=== PATIENT | female | born 2000 ===

== ENCOUNTER 2019-07-26 22:53 | Emergency (ER) | payer OTHER ==
--- OUTSIDE RECORDS SUMMARY | 2019-07-26 22:56 | XMS REPORT | Summary of Care ---
:1999 Author Organization [facility] Address [address] [place] [address] Care Team Providers Name Role Phone EdinCate Mary Beth KLEIN Primary Care Provider Reason for Visit Reason Comments decreased movement Encounter Details Date Type Department Care Team Description 06/22/2019 Nurse Triage ACCESS [facility] Cecy Vaughn, (decreased [address] movement) [place] [id number] Allergies No Known Allergiesdocumented as of this encounter (statuses as of 06/22/2019) Medications Medication Sig Dispensed Refills Start Date End Date Status azithromycin 500 mg TAKE 2 TABLETS BY 0 05/22/2019 Active tablet MOUTH NOW FOR 1 DOSE documented as of this encounter (statuses as of 06/22/2019) Active Problems Problem Noted Date Abnormal maternal glucose tolerance, antepartum 05/22/2019 Chlamydia infection affecting in third trimester 05/22/2019 BMI 31.0-31.9,adult 05/19/2019 Obesity affecting 05/19/2019 Late care affecting in third trimester 05/19/2019 Screening-pulmonary TB 05/19/2019 High-risk in third trimester 05/19/2019 Genital condyloma, female 05/19/2019 Estimated Date of Delivery Comments Yes 07/09/2019 Based on last menstrual period of 10/02/2018 (Exact Date) documented as of this encounter (statuses as of 06/22/2019) Immunizations Name Administration Dates Next Due PPD (TB) 05/19/2019 TDAP (ADACEL) VACCINE 05/19/2019 documented as of this encounter Social History Tobacco Use Types Packs/Day Years Used Date Never Smoker Smokeless Tobacco: Never Used Alcohol Use Drinks/Week oz/Week Comments Never Alcohol Habits Answer Date Recorded How often do you have a drink containing alcohol? Never 05/19/2019 How many drinks containing alcohol do you have on a typical Not asked day when you are drinking? How often do you have six or more drinks on one occasion? Not asked Estimated Date of Delivery Comments Yes 07/09/2019 Based on last menstrual period of 10/02/2018 (Exact Date) Sex Assigned at Date Recorded Not on file Job Start Date Occupation Industry Not on file Not on file Not on file Travel History Travel Start Travel End No recent travel history available. documented as of this encounter Last Filed Vital Signs Not on filedocumented in this encounter Plan of Treatment Date Type Specialty Care Team Description 06/24/2019 Verifying Machine Operator Visit Maternal Salena, Tierney Diaz MD [id number] [place], [place] [id number] Medicine , [facility] Room 06/26/2019 Routine Visit OB Satellites Cate Jesus, AGENT LICENSING CLERK [address] [place] [address] [phone] Health Maintenance Due Date Last Done Comments MENINGOCOCCAL B VACCINES (1 of 2009 2 - Risk Bexsero 2-dose series) HPV VACCINES (1 - Female 2014 3-dose series) INFLUENZA VACCINE 07/23/2019 CHLAMYDIA SCREENING 06/19/2020 06/19/2019, 05/19/2019 DTaP,Tdap,and Td Vaccines (2 - 05/19/2029 05/19/2019 Td) MENINGOCOCCAL VACCINE Aged Out No longer eligible based on patient's age to complete this topic PNEUMOCOCCAL 0-64 YEARS Aged Out No longer eligible based COMBINED SERIES on patient's age to complete this topic documented as of this encounter Results Not on filedocumented in this encounter Insurance Payer Benefit Plan / Subscriber ID Effective Phone Address Type Group Dates [facility] [place]-Shaheen PUma SIM Medicaid HEALTH CHOICE - HEALTH CHOICE nt [id number] MANAGED MEDICAID [place], [place] MEDICAID [phone] documented as of this encounter
--- OUTSIDE RECORDS SUMMARY | 2019-07-26 22:56 | XMS REPORT | Summary of Care ---
:1999 Author Organization [facility] Address [address] [place] [address] Care Team Providers Name Role Phone EdinCate Mary Beth KLEIN Primary Care Provider Reason for Visit Reason Comments decreased movement Encounter Details Date Type Department Care Team Description 06/22/2019 Nurse Triage [facility] Cecy Vaughn, (decreased [address] movement) [place] [phone] Allergies No Known Allergiesdocumented as of this [...] Date Type Specialty Care Team Description 06/24/2019 Land Agent Visit Maternal Salena, Tierney Diaz MD [id number] [place], [place] [address] Medicine , [facility] Room 06/26/2019 Routine Visit OB Satellites Cate Jesus, LEAD ENTERPRISE ARCHITECT [address] [place] [address] [phone] Health Maintenance Due Date Last Done Comments [...] ID Effective Phone Address Type Group Dates [facility] xxxxxxxxx 2019-Shaheen PUma SIM Medicaid HEALTH CHOICE - HEALTH CHOICE nt [id number] MANAGED MEDICAID [place], [place] MEDICAID [phone] documented as of this encounter
--- OUTSIDE RECORDS SUMMARY | 2019-07-26 22:56 | XMS REPORT | Summary of Care ---
:1999 Author Organization [facility] Address [address] [place] [address] Care Team Providers Name Role Phone Cate Jesus Primary Care Provider Reason for Visit Reason Comments Care Encounter Details Date Type Department Care Team Description 06/19/2019 [facility] Jesus High-risk in third trimester (Primary Dx); Visit ERNEI Lee Chlamydia infection affecting in third trimester; [address] Obesity affecting in third trimester; [place], [place] A Abnormal maternal glucose tolerance, antepartum; [address] [place], [place] Genital condyloma, female; [phone] [address] Diarrhea of presumed infectious origin [phone] Allergies No Known Allergiesdocumented as of this encounter (statuses as of 06/19/2019) Medications Medication Sig Dispensed Refills Start Date End Date Status azithromycin 500 mg TAKE 2 TABLETS BY 0 05/22/2019 Active tablet MOUTH NOW FOR 1 DOSE documented as of this encounter (statuses as of 06/19/2019) Active Problems Problem Noted Date Abnormal maternal [...] as of this encounter (statuses as of 06/19/2019) Immunizations Name Administration Dates Next Due PPD [...] of this encounter Last Filed Vital Signs Vital Sign Reading Time Taken Comments Blood Pressure 128/80 06/19/2019 1:33 PM CDT Pulse 88 06/19/2019 1:32 PM CDT Temperature 36.5 C (97.7 F) 06/19/2019 1:32 PM CDT Respiratory Rate 16 06/19/2019 1:32 PM CDT Oxygen Saturation - - Inhaled Oxygen Concentration - - Weight 92.2 kg (203 lb 3 oz) 06/19/2019 1:32 PM CDT Height 164 cm (5' 4.57") 06/19/2019 1:32 PM CDT Body Mass Index 34.26 06/19/2019 1:32 PM CDT documented in this encounter Progress Notes Cate Jesus, NATIONAL VAN TRUCK DRIVER - 06/19/2019 1:00 PM CDT Chief complaint: Chief Complaint Patient presents with Care HPI Mya Blanchard is a 18 year old female is a @ 37w1d here for visit. Patient's last menstrual period was 10/02/2018 (exact date). Estimated Date of Delivery: 07/09/19 Pt reports diarrhea x 4 days. She thinks it was caused by something she ate. Denies any other symptoms including N/V. Having ~4 episodes of diarrhea daily. Has not tried any self treatment. She is taking PNV. She reports good FM. She denies any ctx/cramping, VB, LOF, HEATON , visual disturbance, vaginal discharge or dysuria. She denies any foreign travel. She also denies any physical, sexual or emotional abuse. Histories OB History Para Term AB Living 1 SAB TAB Ectopic Multiple Live Births # Outcome Date GA Lbr Patricio/2nd Weight Sex Delivery Anes PTL Lv 1 Current Past Medical History: Diagnosis Date Abnormal maternal glucose tolerance, antepartum 05/22/2019 Chlamydia infection affecting in third trimester 05/22/2019 Genital condyloma, female 05/19/2019 Family History Problem Relation Age of Onset No Significant Medical Problems Mother No Significant Medical Problems Father No Significant Medical Problems Sister No Significant Medical Problems Brother No Significant Medical Problems Maternal Aunt No Significant Medical Problems Maternal Uncle No Significant Medical Problems Paternal Aunt No Significant Medical Problems Paternal Uncle No Significant Medical Problems Maternal Grandmother No Significant Medical Problems Maternal Grandfather No Significant Medical Problems Paternal Grandmother No Significant Medical Problems Paternal Grandfather Family Status Relation Name Status Mo Alive Fa Alive Sis Alive Bro Alive MAunt Alive MUnc Alive PAunt Alive PUnc Alive MGMo Alive MGFa Alive PGMo Alive PGFa No past surgical history on file. Social History Socioeconomic History Marital status: Spouse name: Not on file Number of children: Not on file Years of education: Not on file Highest education level: Not on file Occupational History Not on file Social Needs Financial resource strain: Not on file Food insecurity: Worry: Not on file Inability: Not on file Transportation needs: Medical: Not on file Non-medical: Not on file Tobacco Use Smoking status: Never Smoker Smokeless tobacco: Never Used Substance and Sexual Activity Alcohol use: Never Frequency: Never Drug use: Never Sexual activity: Not Currently Partners: Male control/protection: None Comment: last sexual intercourse 02/16/2019 Lifestyle Physical activity: Days per week: Not on file Minutes per session: Not on file Stress: Not on file Relationships Social connections: Talks on phone: Not on file Gets together: Not on file Attends confucianist service: Not on file Active member of club or organization: Not on file Attends meetings of clubs or organizations: Not on file Relationship status: Not on file Intimate partner violence: Fear of current or ex partner: Not on file Emotionally abused: Not on file Physically abused: Not on file Forced sexual activity: Not on file Other Topics Concern Not on file Social History Narrative Mormon preference is Oriental Orthodox. Patient lives with cousin. Patient has dogs. Social History Substance and Sexual Activity Sexual Activity Not Currently Partners: Male control/protection: None Comment: last sexual intercourse 02/16/2019 Labs I have reviewed the patient's labs. and Labs are pending. Radiology Radiology pending. Allergies Mya has No Known Allergies. Medications Mya has a current medication list which includes the following prescription( s): azithromycin. Review of Systems Constitutional: Negative for appetite change, fatigue and fever. Eyes: Negative for visual disturbance. Respiratory: Negative. Cardiovascular: Negative for palpitations and leg swelling. Gastrointestinal: Negative for abdominal pain, constipation, diarrhea, nausea and vomiting. Genitourinary: Negative. Negative for dysuria, vaginal bleeding, vaginal discharge and pelvic pain. Musculoskeletal: Negative. Skin: Negative for rash. Neurological: Negative for dizziness, light-headedness and headaches. Psychiatric/Behavioral: Negative. BP 128/80 (BP Location: Left arm, Patient Position: Sitting, BP CUFF SIZE: Adult Large) | Pulse 88| Temp 36.5 C (97.7 F) (Oral) | Resp 16 | Ht 5' 4.57" (1.64 m) | Wt 203 lb 3 oz (92.2 kg) | LMP 10/02/2018 (Exact Date) | BMI 34.26 kg/m Pregravid BMI: 27.2 Physical Exam Vitals reviewed. Constitutional: She is oriented to person, place, and time. She appears well- developed and well-nourished. See flowsheet Cardiovascular: No peripheral edema present. Pulmonary/Chest: Normal inspiratory effort. Abdominal: Abdomen is soft. Neuro/Psychiatric: She has a normal mood and affect. She is oriented to person, place, and time. Skin: Skin normal. External genitalia: Multiple condylomas, nonobstructive Assessment/Plan 1. High-risk in third trimester 37w1d 36 week labs today IOL scheduled for 07/10/19 at 40w1d d/t unreliable dating. Pt does not have transportation for an IOLon 07/09 Labor precautions, FKC and PIH warnings reviewed. ' - POCT URINALYSIS W/O SPECIFIC GRAVITY - CBC WITH DIFF - GC & CHLAMYDIA AMPLIFIED ASSAY - GROUP B STREPTOCOCCUS BY PCR - CBC WITH DIFFERENTIAL 2. Chlamydia infection affecting in third trimester S/p zithromax, SHAN ordered today - GC & CHLAMYDIA AMPLIFIED ASSAY 3. Obesity affecting in third trimester The patient is asked to make an attempt to improve diet and exercise patterns to aid in medical management of this problem. 4. Abnormal maternal glucose tolerance, antepartum Failed 1 hr, passed 3 hr 5. Genital condyloma, female S/p HR consult, per note internal condylomas nonobstructive and patient is candidate for vaginal delivery 6. Diarrhea of presumed infectious origin Likely from food source, encouraged increase water intake, BRAT diet and imodium if symptoms become severe. Return to clinic in 1 weeks. Discussed treatment options. Reviewed patient instructions and provided printed copy. at 37w1d This visit did not involve counseling and coordination that comprised more than 50% of the visit time. Shilpi ortiz RN - 06/19/2019 1:00 PM CDTPatient GV has been scheduled for IOL on @ 40.1wks , 7:30pm, transportation issues noted. documented in this encounter Plan of Treatment Date Type Specialty Care Team Description 06/24/2019 Machine Edge Bander Visit Maternal 5, [facility] Usg Room Medicine 06/26/2019 Routine Visit OB Satellites Cate Jesus FNP [address] [place], [place] [address] Name Type Priority Associated Diagnoses Date/Time CBC WITH DIFF LAB Routine High-risk in 06/19/2019 2:00 PM third trimester CDT GC & CHLAMYDIA AMPLIFIED LAB Routine High-risk in 06/19/2019 2: 00 PM ASSAY third trimester CDT Chlamydia infection affecting in third trimester GROUP B STREPTOCOCCUS BY LAB Routine High-risk in 06/19/2019 2: 00 PM PCR third trimester CDT CBC WITH DIFFERENTIAL LAB Routine High-risk in 06/19/2019 2:00 PM third trimester CDT Health Maintenance Due Date Last Done Comments MENINGOCOCCAL B VACCINES (1 of 2 - 2009 Risk Bexsero 2-dose series) HPV VACCINES (1 - Female 3-dose 2014 series) INFLUENZA VACCINE 07/23/2019 CHLAMYDIA SCREENING 05/19/2020 05/19/2019 DTaP,Tdap,and Td Vaccines (2 - Td) 05/19/2029 05/19/2019 MENINGOCOCCAL VACCINE Aged Out No longer eligible based on patient's age to complete this topic PNEUMOCOCCAL 0-64 YEARS COMBINED Aged Out No longer eligible based on SERIES patient's age to complete this topic documented as of this encounter Procedures Procedure Name Priority Date/Time Associated Comments Diagnosis POCT URINALYSIS W/O Routine 06/19/2019 1:34 PM High-risk Results for this SPECIFIC GRAVITY CDT in third trimester procedure are in the results section. documented in this encounter Results POCT URINALYSIS W/O SPECIFIC GRAVITY (06/19/2019 1:34 PM CDT) POCT PH U . 5 - 8 mg/dl POCT U LEUK EST . Negative - Negative POCT U NIT . Negative - Negative POCT U PROT neg Negative - Negative POCT U GLU neg Negative - Negative POCT U KETONE . Negative - Negative POCT U BLD . Negative - Negative Specimen Urine - URINE, CLEAN CATCH documented in this encounter Visit Diagnoses Diagnosis High-risk in third trimester - Primary Chlamydia infection affecting in third trimester Obesity affecting in third trimester Abnormal maternal glucose tolerance, antepartum Genital condyloma, female Condyloma acuminatum Diarrhea of presumed infectious origin documented in this encounter Insurance Payer Benefit Plan / Subscriber ID Effective Phone Address Type Group Dates [facility] xxxxxxxxx 2019-Shaheen SIM Medicaid HEALTH [employer] - HEALTH LookStat nt [id number] MANAGED MEDICAID [place], [place]ICAID [phone] documented as of this encounter
--- OUTSIDE RECORDS SUMMARY | 2019-07-26 22:57 | XMS REPORT | Summary of Care ---
:1999 Author Organization [facility] Address [address] [place] [address] Care Team Providers Name Role Phone Cate Jesus Primary Care Provider Reason for Visit Reason Comments ULTRASOUND (Routine) Status Reason Specialty Diagnoses / Referred By Referred To Procedures Contact Contact Authorized Maternal Diagnoses High risk , antepartum Genital condyloma, female Rolle, Jolie Medicine Procedures CONSULT MATERNAL MEDICINE ULTRASOUND Preferred Location: Leeann Marmolejo [address] [place] [address] Encounter Details Date Type Department Care Team Description 06/24/2019 Hot Press Operator Visit [facility] Women's [place], Tierney Diaz MD [address] [place] [address] [id number] [place] [address] Encounter for Healthcare-[address] Usg Room screening [facility] Clinics for malformation using [address] [place] [address] Allergies No Known Allergiesdocumented as of this encounter (statuses as of 06/24/2019) Medications Medication Sig Dispensed Refills Start Date End Date Status azithromycin 500 mg TAKE 2 TABLETS BY 0 05/22/2019 Active tablet MOUTH NOW FOR 1 DOSE documented as of this encounter (statuses as of 06/24/2019) Active Problems Problem Noted Date Decreased movements in third trimester, single or unspecified fetus 11/2018 Abnormal maternal glucose tolerance, antepartum 05/22/2019 Chlamydia infection affecting in third trimester 05/22/2019 BMI 31.0-31.9,adult 05/19/2019 Obesity affecting 05/19/2019 Late care affecting in third trimester 05/19/2019 Screening-pulmonary TB 05/19/2019 High-risk in third trimester 05/19/2019 Genital condyloma, female 05/19/2019 Estimated Date of Delivery Comments Yes 07/09/2019 Based on last menstrual period of 10/02/2018 (Exact Date) documented as of this encounter (statuses as of 06/24/2019) Immunizations Name Administration Dates Next Due PPD [...] Treatment Date Type Specialty Care Team Description 06/26/2019 Routine Visit OB Satellites Cate Jesus, SHEET ROCK APPLICATOR [address] [place] [address] [phone] Health Maintenance Due Date Last Done Comments [...] Results Not on filedocumented in this encounter Visit Diagnoses Diagnosis Encounter for screening for malformation using ultrasound documented in this encounter Insurance Payer Benefit Plan / Subscriber ID Effective Phone Address Type Group Dates [facility] xxxxxxxxx 2019-Shaheen SIM Medicaid [employer] [id number] MANAGED MEDICAID [place], [place] [id number] documented as of this encounter
--- OUTSIDE RECORDS SUMMARY | 2019-07-26 22:57 | XMS REPORT ---
:1999 Author [facility] Address [address] [place] [address] Dr. Guillaume [address] [place] [address] Care Team Providers Name Role Phone Unavailable Unavailable Unavailable Problems This patient has no known problems. Allergies, Adverse Reactions, Alerts This patient has no known allergies or adverse reactions. Medications This patient has no known medications.
--- OUTSIDE RECORDS SUMMARY | 2019-07-26 22:57 | XMS REPORT | Summary of Care ---
:2000 Author Organization [facility] Address [address] [place] [address] Care Team Providers Name Role Phone Cate Jesus Primary Care Provider Reason for Visit Reason Comments Care Encounter Details Date Type Department Care Team Description [facility] High-risk in third trimester (Primary Dx); Visit ERNIE Lee Chlamydia infection affecting in third trimester; [address] Obesity affecting in third trimester; [place], [place] Ethan A Late care affecting in third trimester; [address] [place], [place] Genital condyloma, female; [phone] [address] Abnormal maternal glucose tolerance, antepartum; [phone] Elevated blood pressure reading without diagnosis of hypertension Allergies No Known Allergiesdocumented as of this encounter (statuses as of 06/26/2019) Medications Medication Sig Dispensed Refills Start Date End Date Status azithromycin 500 mg TAKE 2 TABLETS 0 05/22/2019 06/26/2019 Discontinued tablet BY MOUTH NOW FOR 1 DOSE documented as of this encounter (statuses as of 06/26/2019) Active Problems Problem Noted Date Decreased movements [...] as of this encounter (statuses as of 06/26/2019) Immunizations Name Administration Dates Next Due PPD [...] Sign Reading Time Taken Comments Blood Pressure 127/73 06/26/2019 1:43 PM CDT Pulse 62 06/26/2019 1:42 PM CDT Temperature 37.1 C (98.7 F) 06/26/2019 1:42 PM CDT Respiratory Rate 16 06/26/2019 1:42 PM CDT Oxygen Saturation - - Inhaled Oxygen Concentration - - Weight 92.6 kg (204 lb 1 oz) 06/26/2019 1:42 PM CDT Height 162.6 cm (5' 4") 06/26/2019 1:42 PM CDT Body Mass Index 35.03 06/26/2019 1:42 PM CDT documented in this encounter Progress Notes Cate Jesus, CLINICAL OPERATIONS CONSULTANT - 06/26/2019 1:15 PM CDT Chief complaint: Chief Complaint Patient presents with Care HPI Mya Blanchard is a 18 year old female is a @ 38w1d here for visit. Patient's last menstrual period was 10/02/2018 (exact date). Estimated Date of Delivery: 07/09/19 Today she denies any complaints or concerns. She reports occasional headaches relieved by Tylenol and reports occasional contractions. She is taking PNV. She reports good FM. She denies any, VB, LOF, HEATON, visual disturbance, vaginal discharge or dysuria. She [...] file Gets together: Not on file Attends quaker service: Not on file Active member of [...] Concern Not on file Social History Narrative Jainism preference is Bahai. Patient lives with cousin. Patient has dogs. Social History Substance and Sexual Activity Sexual Activity Not Currently Partners: Male control/protection: None Comment: last sexual intercourse 02/16/2019 Labs No new labs, I have reviewed the patient's labs. and Routine Visit on 06/22/2019 Component Date Value POCT PH U 06/22/2019 * POCT U LEUK EST 06/22/2019 * POCT U NIT 06/22/2019 * POCT U PROT 06/22/2019 Negative POCT U GLU 06/22/2019 Negative POCT U KETONE 06/22/2019 * POCT U BLD 06/22/2019 * Routine Visit on 06/19/2019 Component Date Value POCT PH U 06/19/2019 . POCT U LEUK EST 06/19/2019 . POCT U NIT 06/19/2019 . POCT U PROT 06/19/2019 neg POCT U GLU 06/19/2019 neg POCT U KETONE 06/19/2019 . POCT U BLD 06/19/2019 . C. trachomatis Nucleic A* 06/19/2019 Negative N. gonorrhoeae Nucleic A* 06/19/2019 Negative Group B Streptococcus by* 06/19/2019 Negative WBC 06/19/2019 11.29* RBC 06/19/2019 4.36 HGB 06/19/2019 10.4* HCT 06/19/2019 34.7* MCV 06/19/2019 79.6* MCH 06/19/2019 23.9* MCHC 06/19/2019 30.0* RDW-SD 06/19/2019 43.5 RDW-CV 06/19/2019 15.1 PLT 06/19/2019 272 MPV 06/19/2019 11.7 NRBC/100 WBC 06/19/2019 0.0 NRBC x10^3 06/19/2019 <0.01 GRAN MAT (NEUT) % 06/19/2019 75.9 IMM GRAN % 06/19/2019 0.60 LYMPH % 06/19/2019 14.3 MONO % 06/19/2019 7.5 EOS % 06/19/2019 1.3 BASO % 06/19/2019 0.4 GRAN MAT x10^3(ANC) 06/19/2019 8.57* IMM GRAN x10^3 06/19/2019 0.07* LYMPH x10^3 06/19/2019 1.61 MONO x10^3 06/19/2019 0.85 EOS x10^3 06/19/2019 0.15 BASO x10^3 06/19/2019 0.04 Routine Visit on 06/01/2019 Component Date Value POCT PH U 06/01/2019 5 POCT U LEUK EST 06/01/2019 neg POCT U NIT 06/01/2019 neg POCT U PROT 06/01/2019 neg POCT U GLU 06/01/2019 neg POCT U KETONE 06/01/2019 neg POCT U BLD 06/01/2019 neg Radiology I have reviewed the patient's radiology. anatomy scan 06/24/19 reviewed Allergies Mya has No Known Allergies. Medications Mya currently has no medications in their medication list. Review of Systems Constitutional: Negative for appetite change, fatigue and fever. Eyes: Negative for visual disturbance. Respiratory: Negative. Cardiovascular: Negative for palpitations and leg swelling. Gastrointestinal: Negative for abdominal pain, constipation, diarrhea, nausea and vomiting. Genitourinary: Negative. Negative for dysuria, vaginal bleeding, vaginal discharge and pelvic pain. Musculoskeletal: Negative. Skin: Negative for rash. Neurological: Negative for dizziness, light-headedness and headaches. Psychiatric/Behavioral: Negative. BP 127/73 (BP Location: Left arm, Patient Position: Sitting, BP CUFF SIZE: Adult Large) | Pulse 62| Temp 37.1 C (98.7 F) (Oral) | Resp 16 | Ht 5' 4 " (1.626 m) | Wt 204 lb 1 oz (92.6 kg) | LMP 10/02/2018 (Exact Date) | BMI 35.03 kg/m Pregravid BMI: 27.6 Physical Exam Vitals reviewed. Constitutional: She is oriented to person, place, and time. She appears well- developed and well-nourished. See flowsheet Cardiovascular: No peripheral edema present. Pulmonary/Chest: Normal inspiratory effort. Abdominal: Abdomen is soft. Neuro/Psychiatric: She has a normal mood and affect. She is oriented to person, place, and time. Skin: Skin normal. Assessment/Plan 1. High-risk in third trimester 38w1d Labor precautions, FKC and PIH warnings reviewed. 40w IOL scheduled for 07/10/19 - POCT URINALYSIS W/O SPECIFIC GRAVITY 2. Chlamydia infection affecting in third trimester S/p azithromycin, SHAN negative 06/19/19 3. Obesity affecting in third trimester The patient is asked to make an attempt to improve diet and exercise patterns to aid in medical management of this problem. 4. Late care affecting in third trimester 5. Genital condyloma, female Nonobstructive, address treatment options 6. Abnormal maternal glucose tolerance, antepartum Failed 1 hr GTT, passed 3 hr. 7. Elevated blood pressure reading without diagnosis of hypertension BP today 140/86 with recheck 127/73 Reports occasional headaches Has baseline blurry vision outside of , denies changes in vision Denies RUQ 1+ pedal edema Trace proteinuria Instructed to keep BP log at home BID, report to ER if >160/100 Strong ER warnings for s/s PIH - CUFF ADULT BLOOD PRESSURE DISP Return to clinic in 1 weeks. Discussed treatment options. Reviewed patient instructions and provided printed copy. at 38w1d This visit did not involve counseling and coordination that comprised more than 50% of the visit time. documented in this encounter Plan of Treatment Date Type Specialty Care Team Description 07/04/2019 Routine Visit OB Satellites Cate Jesus FNP [address] [place] [address] [phone] Health Maintenance Due Date Last Done Comments [...] Associated Comments Diagnosis POCT URINALYSIS W/O Routine 06/26/2019 1:44 PM High-risk Results for this SPECIFIC GRAVITY CDT in third trimester procedure are in the results section. documented in this encounter Results POCT URINALYSIS W/O SPECIFIC GRAVITY (06/26/2019 1:44 PM CDT) POCT PH U . 5 [...] third trimester Obesity affecting in third trimester Late care affecting in third trimester Genital condyloma, female Condyloma acuminatum Abnormal maternal glucose tolerance, antepartum Elevated blood pressure reading without diagnosis of hypertension documented in this encounter Insurance Payer Benefit Plan / Subscriber ID Effective Phone Address Type Group [facility] xxxxxxxxx 2019-Shaheen SIM Medicaid HEALTH Figment - HEALTH Figment nt [id number] MANAGED MEDICAID [place], [place] MEDICAID [phone] documented as of this encounter
--- OUTSIDE RECORDS SUMMARY | 2019-07-26 22:57 | XMS REPORT | Summary of Care ---
:1999 Author Organization [facility] Address [address] [place] [address] Care Team Providers Name Role Phone Cate Jesus Primary Care Provider Reason for Visit Reason Comments ROUTINE VISIT Encounter Details Date Type Department Care Team Description 06/22/2019 Routine [facility] R[facility]- Cate Jesus High-risk in third trimester (Primary Dx); Visit ERNIE Lee Decreased movements in third trimester, single or unspecified fetus; [address] Chlamydia infection affecting in third trimester; [place], [place] Ethan A Obesity affecting in third trimester; [address] [place], [place] Late care affecting in third trimester; [phone] [address] Abnormal maternal glucose tolerance, antepartum; [phone] Genital condyloma, female; [phone] Back pain affecting in third trimester (Fax) Allergies No Known Allergiesdocumented as of this encounter (statuses as of 06/22/2019) Medications Medication Sig Dispensed Refills Start Date End Date Status azithromycin 500 mg TAKE 2 TABLETS BY 0 05/22/2019 Active tablet MOUTH NOW FOR 1 DOSE documented as of this encounter (statuses as of 06/22/2019) Active Problems Problem Noted Date Decreased movements [...] Sign Reading Time Taken Comments Blood Pressure 110/82 06/22/2019 2:21 PM CDT Pulse 92 06/22/2019 2:21 PM CDT Temperature 36.5 C (97.7 F) 06/22/2019 2:21 PM CDT Respiratory Rate 16 06/22/2019 2:21 PM CDT Oxygen Saturation 99% 06/22/2019 2:21 PM CDT Inhaled Oxygen Concentration - - Weight 93.2 kg (205 lb 8 oz) 06/22/2019 2:21 PM CDT Height 162.6 cm (5' 4") 06/22/2019 2:21 PM CDT Body Mass Index 35.27 06/22/2019 2:21 PM CDT documented in this encounter Patient Instructions Patient InstructionsTiffanyllCate coyne FNP - 06/22/2019 2:15 PM CDT documented in this encounter Progress Notes Cate Jesus FNP - 06/22/2019 2:15 PM CDT Chief complaint: Chief Complaint Patient presents with ROUTINE VISIT HPI Mya Blanchard is a 18 year old female is a @ 37w4d here for problem visit. Patient's last menstrual period was 09/2018 (exact date). Estimated Date of Delivery: 07/09/19 Pt reports decreased movement since last night. She called and spoke with nurse and tried drinking fluids, rest and eating, and did not see an improvement in kick counts. She is also experiencingsome back pain. She is taking PNV. She denies any ctx/cramping, VB, LOF, HEATON, visual disturbance , vaginal discharge or dysuria. She denies any [...] file Gets together: Not on file Attends orthodox service: Not on file Active member of [...] Concern Not on file Social History Narrative Zoroastrianism preference is Worship. Patient lives with cousin. Patient has dogs. Social History Substance and Sexual Activity Sexual Activity Not Currently Partners: Male control/protection: None Comment: last sexual intercourse 02/16/2019 Labs No new labs and I have reviewed the patient's labs. Radiology Radiology pending. Allergies Mya has No [...] bleeding, vaginal discharge and pelvic pain. Musculoskeletal: Positive for back pain. Skin: Negative for rash. Neurological: Negative for dizziness, light-headedness and headaches. Psychiatric/Behavioral: Negative. BP 110/82 (BP Location: Right arm, Patient Position: Sitting, BP CUFF SIZE: Adult Medium) | Pulse 92 | Temp 36.5 C (97.7 F) | Resp 16 | Ht 5' 4" ( 1.626 m) | Wt 205 lb 8 oz (93.2 kg) | LMP 10/02/2018 (Exact Date) | SpO2 99% | BMI 35.27 kg/m Pregravid BMI: 27.6 Physical Exam Vitals reviewed. Constitutional: She is oriented to person, place, and time. She appears well- developed and well-nourished. See flowsheet Cardiovascular: No peripheral edema present. Pulmonary/Chest: Normal inspiratory effort. Abdominal: Abdomen is soft. Neuro/Psychiatric: She has a normal mood and affect. She is oriented to person, place, and time. Skin: Skin normal. Assessment/Plan 1. High-risk in third trimester 37w4d Labor precautions, FKC and PIH warnings reviewed. IOL scheduled for 07/10/19, instructions given Anatomy scan scheduled for 06/24/19 - POCT URINALYSIS W/O SPECIFIC GRAVITY - NON-STRESS TEST 2. Decreased movements in third trimester, single or unspecified fetus NST reactive Reviewed proper kick count technique, encouraged plenty of fluids and rest - NON-STRESS TEST 3. Chlamydia infection affecting in third trimester SHAN negative 06/19/19 4. Obesity affecting in third trimester The patient is asked to make an attempt to improve diet and exercise patterns to aid in medical management of this problem. 5. Late care affecting in third trimester Late entry to care at 32 weeks 6. Abnormal maternal glucose tolerance, antepartum Failed 1 hr GTT, 3 hour GTT 3/4 values WNL 7. Genital condyloma, female 8. Back pain affecting in third trimester Advised getting plenty of rest, massage neck and back, and maternity support belt. Apply ice/heat tothe affected area and neck prn. Instructions for regular strength Tylenol 2 tablets every 4 hours asneeded, not to exceed 8 tablets in 24 hours. Return to clinic in 1 weeks. Discussed treatment options. Reviewed patient instructions and provided printed copy. at 37w4d This visit did not involve counseling and coordination that comprised more than 50% of the visit time. documented in this encounter Plan of Treatment Date Type Specialty Care Team Description 06/24/2019 Bottling Line Operator Visit Maternal Salena, Tierney Diaz MD [id number] [place] [address] Medicine 5, [facility] Usg Room 06/26/2019 Routine Visit OB Satellites Cate Jesus FNP [address] [facility] [address] [place], [place] [id number] Health Maintenance Due Date Last Done Comments [...] encounter Procedures Procedure Name Priority Date/Time Associated Diagnosis Comments NON-STRESS Routine 06/22/2019 2:41 High-risk Results for this TEST PM CDT in third trimester procedure are in Decreased the results movements in third section. trimester, single or unspecified fetus POCT URINALYSIS W/O Routine 06/22/2019 2:25 High-risk Results for this SPECIFIC GRAVITY PM CDT in third trimester procedure are in the results section. documented in this encounter Results NON-STRESS TEST (06/22/2019 2:41 PM CDT) Specimen Narrative Performed At Reactive Cat 1 NST PACS Performing Organization Address [facility] Phone Number PACS POCT URINALYSIS W/O SPECIFIC GRAVITY (06/22/2019 2:25 PM CDT) POCT PH U * 5 - 8 mg/dl [facility] POCT U LEUK EST * Negative - Negative [facility] POCT U NIT * Negative - Negative [facility] POCT U PROT Negative Negative - Negative [facility] POCT U GLU Negative Negative - Negative [facility] POCT U KETONE * Negative - Negative [facility] POCT U BLD * Negative - Negative [facility] Specimen Urine - URINE, CLEAN CATCH Performing Organization Address City/[facility] Phone Number [facility] CLIA: [id number], [address] [place] [address] Mary documented in this encounter Visit Diagnoses Diagnosis High-risk in third trimester - Primary Decreased movements in third trimester, single or unspecified fetus Chlamydia infection affecting in third trimester Obesity affecting in third trimester Late care affecting in third trimester Abnormal maternal glucose tolerance, antepartum Genital condyloma, female Condyloma acuminatum Back pain affecting in third trimester documented in this encounter Insurance Payer Benefit Plan / Subscriber ID Effective Phone Address Type Group Dates [facility] xxxxxxxxx 2019-Shaheen SIM Medicaid EDMdesigner - EDMdesigner [id number] MANAGED MEDICAID [place], [place] MEDICAID [phone] documented as of this encounter
--- OUTSIDE RECORDS SUMMARY | 2019-07-26 22:57 | XMS REPORT | Summary of Care ---
:1999 Author Organization [facility] Address [address] [place] [address] Care Team Providers Name Role Phone Cate Jesus BANQUET CHEF Primary Care Provider Reason for Visit Reason Comments Assessment Headache [place] HIGH BLOOD PRESSURE Encounter Details Date Type Department Care Team Description 06/29/2019 [facility], Assessment; Headache; [place] BANQUET CHEF [place]; HIGH BLOOD [address] PRESSURE [facility] A [address] [place], [place] [address] Allergies No Known Allergiesdocumented as of this encounter (statuses as of 06/29/2019) Medications No known medicationsdocumented as of this encounter (statuses as of 06/29/2019) Active Problems Problem Noted Date Decreased movements [...] as of this encounter (statuses as of 06/29/2019) Immunizations Name Administration Dates Next Due PPD [...] Description 07/04/2019 Routine Visit OB Satellites Cate Jesus, BANQUET CHEF [address] [place] [address] [phone] Health Maintenance Due Date Last Done Comments [...] ID Effective Phone Address Type Group Dates [facility] xxxxxxxxx 2019-Shaheen SIM Medicaid HEALTH CHOICE - HEALTH CHOICE nt [id number] MANAGED MEDICAID [place], [place] MEDICAID [id number] documented as of this encounter
--- OUTSIDE RECORDS SUMMARY | 2019-07-26 22:58 | XMS REPORT | Summary of Care ---
:[address] [facility] Address [address] [place] [id number] Care Team Providers Name Role Phone Cate Jesus Primary Care Provider Reason for Referral (Routine) Status Reason Specialty Diagnoses / Referred By Referred To Procedures Contact Contact New Request Obstetrics & Diagnoses S/P section Nicolle Washburn, Gynecology Procedures DISCHARGE FOLLOW-UP: [facility] [address] [place] [address] [id number] [place] [address] Reason for Visit Reason Comments Hypertension TINGLING Headache Auth/Cert Status Reason Specialty Diagnoses / Referred By Contact Referred To Contact Procedures Obstetrics Diagnoses Labor [address] [place] [id number] Encounter Details Date Type Department Care Team Description 06/29/2019 - Hospital Encounter Mother Baby Unit Brandon Oakes Abnormal maternal 07/05/2019 (J8C) DO Reg glucose tolerance, [address] [place] [address] antepartum [place] [id number] [place] [phone] [id number] Allergies No Known Allergiesdocumented as of this encounter (statuses as of 07/05/2019) Medications Medication Sig Dispensed Refills Start Date End Date Status vitamin w/FA Take 1 tablet by 100 tablet 3 07/04/2019 Active tabletIndications: mouth daily. S/P section docusate calcium 240 Take 1 capsule by 60 capsule 1 07/04/2019 Active mg mouth once daily capsuleIndications: as needed for S/P section Constipation. ferrous sulfate 325 Take 1 tablet by 60 tablet 2 07/04/2019 Active mg (65 mg iron) mouth 2 (two) tabletIndications: times daily. S/P section ibuprofen 600 mg Take 1 tablet by 60 tablet 1 07/04/2019 Active tabletIndications: mouth every 6 S/P section (six) hours as needed for Pain (scale 1-3) or Pain (scale 4-6) (Pain). Take with food or milk. documented as of this encounter (statuses as of 07/05/2019) Active Problems Problem Noted Date 38 weeks gestation of 06/29/2019 Obesity (BMI 30-39.9) 06/29/2019 Decreased movements in third trimester, single or [...] as of this encounter (statuses as of 07/05/2019) Immunizations Name Administration Dates Next Due PPD [...] Sign Reading Time Taken Comments Blood Pressure 120/80 07/05/2019 3:00 PM CDT Pulse 73 07/05/2019 3:00 PM CDT Temperature 36.4 C (97.5 F) 07/05/2019 3:00 PM CDT Respiratory Rate 20 07/05/2019 3:00 PM CDT Oxygen Saturation 98% 07/05/2019 3:00 PM CDT Inhaled Oxygen Concentration - - Weight 93 kg (205 lb) 06/29/2019 5:24 PM CDT Height - - Body Mass Index 35.19 06/26/2019 1:42 PM CDT documented in this encounter Discharge Instructions Alexia Adams RN - 07/05/2019Multidisciplinary Discharge Instructions (may include diet, dressing changes, activity limits, written materials given to patient: DIET: Eat a well balanced diet; drink 6-8 glasses of fluids daily; eat fruits and green, leafy vegetables. DAILY ACTIVITIES: 1. As much as you feel able to do. Rest when you are tired. 2. Limitations: Specify; No heavy lifting other than your baby for 4 weeks if you had surgery. TREATMENT AT HOME 1. Use a well-fitting bra to prevent breast engorgement 2. Resume intercourse as instructed by your physician. 3. Do not use douches or tampons for four weeks. 4. To help prevent urinary tract infection; after each urination and bowel movement, wipe and dry from front to back and change lore pad. 5. Follow discharge instructions regarding baby care. 6. Follow family planning instructions. IMMEDIATE TREATMENT - Call Clinic or Your Physician 1. Increase in pain and tenderness of uterus. 2. Increased vaginal bleeding (bright red blood which soaks 2 pads in 1 hour or pass large clots). 3. Foul smelling vaginal discharge. 4. Burning in the tube that empties the urine from the bladder. 5. Painful breast engorgement or cracked nipples. 6. Pain, discharges, or gaping incision. 7. Temperature greater than 38.0C or 100.4F 8. Pain and tenderness of calf or thigh muscles. 9. No bowel movements in 4 days. For Problems or Questions Call: OB Clinic Family Planning [phone] or Emergency: Go to the closest emergency room or call 911 AttachmentsThe following attachments cannot be sent through Care Everywhere., Breast Care After (English), After (English) Depression, Understanding (English)When to Call the Healthcare Provider, After Delivery (English)Mothers, For New: Staying Fit After Delivery ( English)documented in this encounter Progress Notes Karen Chapman MD - 07/04/2019 10:49 AM CDTR2 Note Mya Carrillo [id number] 07/04/2019, 10:49 AM Patient afebrile more than 24 hours. Will D/c antibiotics and anticipate discharge tomorrow if afebrile overnight. Karen Chapman PGY 2 OBGYNElectronically signed by Karen Chapman MD at 2018 10:51 AM CDTRKaren Reese MD - 07/04/2019 4:40 AM CDT POST-OPERATIVE PROGRESS NOTE 07/04/2019 4:40 AM Subjective: Overnight patient had no complaints. Her pain is well controlled on oral pain medications. She is tolerating a regular diet. She has passed flatus. She is ambulating without difficulty. Lochia is Scant. She is urinating without weston. Patient denies chest pain, SOB, n/v, headache, RUQ pain, vision changes, dizziness. Objective: VITALS: Patient Vitals for the past 24 hrs: BP Temp Temp src Pulse Resp SpO2 07/04/19 0000 137/80 36.8 C (98.2 F) Oral 84 20 99 % 07/03/19 2000 126/84 36.9 C (98.4 F) Oral 88 20 99 % 07/03/19 1600 139/88 36.6 C (97.9 F) Oral 84 18 99 % 07/03/19 1550 137/85 36.6 C (97.9 F) Oral 90 18 99 % 07/03/19 1155 125/75 36.7 C (98 F) Oral 89 07/03/19 1000 138/85 36.9 C (98.5 F) Oral 76 18 99 % 07/03/19 0700 (!) 140/87 37.2 C (98.9 F) Oral 75 18 98 % 07/03/19 0600 (!) 140/89 37.3 C (99.1 F) Axillary 82 18 95 % 07/03/19 0500 (!) 140/84 I/O: Intake/Output Summary (Last 24 hours) at 07/04/2019 0440 Last data filed at 07/04/2019 0030 Gross per 24 hour Intake 1491 ml Output 2250 ml Net -759 ml PE: General: patient alert and in no acute distress Lungs: clear to auscultation bilaterally Cardiology: regular rate and rhythm, no murmur Abdomen: normal tenderness to palpation, soft, bowel sounds present. Fundus is firm and at umbilicus Incision: Clean, dry, and intact, no erythema or induration Extremities: no clubbing, cyanosis, or edema : deferred MEDS: Current Facility-Administered Medications Medication Dose Route Frequency Last Rate Last Dose acetaminophen (TYLENOL) tablet 650 mg 650 mg Oral Q6HPRN 650 mg at 2257 morpHINE injection 2 mg 2 mg Slow IV Push Q3HPRN piperacillin-tazobactam (ZOSYN) 3.375 gram/50 mL Piggyback 3.375 g 3.375 g IV Piggyback Q6H ABX 3.375 g at 07/04/19 0030 traMADol (ULTRAM) tablet 50 mg 50 mg Oral Q6HPRN 50 mg at 07/03/19 1147 bisacodyl (DULCOLAX) suppository 10 mg 10 mg Rectal QDAILYPRN diphenhydrAMINE (BENADRYL) 25 mg in NaCl 0.9% (NS) piggyback 25 mg IV Piggyback Q6HPRN diphenhydrAMINE (BENADRYL) tablet 25 mg 25 mg Oral Q6HPRN docusate calcium (SURFAK) capsule 240 mg 240 mg Oral QDAILYPRN 240 mg at 07/04/19 0358 magnesium hydroxide (MILK OF MAGNESIA) 400 mg/5 mL suspension 30 mL 30 mL Oral QDAILYPRN 30 mL at 07/02/19 0209 ondansetron (ZOFRAN (PF)) injection 4 mg 4 mg Slow IV Push Q8HPRN simethicone (GAS RELIEF) chewable tablet 160 mg 160 mg Oral PC+HSPRN 160 mg at 07/04/19 0358 naloxone (NARCAN) injection 0.1 mg 0.1 mg Slow IV Push SEE-INSTRUCTIONS LABS: WBC (10*3/L) Date Value 07/02/2019 19.48 (H) 07/02/2019 16.33 (H) HGB (g/dL) Date Value 07/02/2019 8.1 (L) 07/02/2019 6.4 (L) HCT (%) Date Value 07/02/2019 24.9 (L) 07/02/2019 20.5 (L) PLT (10*3/L) Date Value 07/02/2019 216 07/02/2019 184 Assessment/Plan: Mya Carrillo is a 18 year [id number]#5s/p primaryLTCS on 06/30/19at 38w6d 2028for failure to progress, complicated by EBL of 1500cc and chorio. Postoperative Review: - Admitted for:IOL - Surgical procedure:Primary section - Skin incision:pfannenstiel - Closure:suture - Estimated blood loss:1500mL - Intraoperative Complications:EBL 1500cc - Clinical trials:TXA - Preop H/H:9.4/29.9 - Postop H/H:6.4/24.2 Chorio - febrile following delivery (07/01 @ 0315 to 38.1) - s/p amp, gent, metronidazole x24h - switched to Zosyn q6h on 07/02 since patient continued to spike fevers - Ucx and BloodCx prelim negative - Last febrile to 38.6 on 07/03 @ 0000 Acute blood loss - EBL: 1500cc - Hgb: 9.4 (06/29 -> 6.4 (07/01) -> 1 unit pRBCs -> 7.8 (07/01) -> 7.0 (07/01) -> 6.4(07/02)-->1 unit pRBCs-->8.1 - s/p normal FAST exam performed by faculty - Patient asymptomatic this AM - VSS Preeclampsia without severe features -based on mild ranging BPs and a Pr/Cr 0.5 - asymptomatic - BPs overnight: 120s-130s/ 70s-80s 06/29/2019 19:00 HGB 9.4 (L) PLT x10^3 236 CREATININE 0.48 (L) URIC ACID 5.5 Protein/Creatinine Ratio Urine 0.5 ALT(SGPT) 15 AST(SGOT) 25 LDH 453 Antepartum course reviewed - seronegative, Rimmune, VZVimmune,B positive/IATnegative, GBSnegative, Papunderage -[facility] Postoperative care: - Diet: Advance as tolerated - Fluid: Encourage oral intake - Activity: Encourage ambulation and incentive spirometry - Pain: Joaquin and Ibuprofen - DVT prophylaxis: SCDs and TEDs when not ambulating Discharge Planning - Contraception:undecided - [facility] Dispo: Anticipate dischargePOD 2-3 Baby's Status - APGARs8,9 - Weight: 3685 g - At bedside Dispo: patient has met all milestones, afebrile more than 24 hours. Consider d/ c abx today and possible discharge Karen Chapman MD Associated attestation - Nicolle Washburn MD - 07/05/2019 9:41 AM CDTI personally examined the patient on 07/04/[address] De Santiago's resident note as written . I actively participated in the decision-making process. Please see the resident's note for additional details. Kate Dugan MD - 07/03/2019 6:53 AM CDT POST-OPERATIVE PROGRESS NOTE Subjective: Patient brought down from to Obs yesterday given increasing pain, dizziness and continued fevers. This AM patient reports her pain is controlled and feels much better. She is tolerating crackers, chips and fluids. Patient has ambulated minimally. Lochia is scant. Patient denies chest pain, SOB, n/v, headache, RUQ pain, vision changes. She endorses dizziness when she ambulates. She has not had any syncopal episodes. Objective: Patient Vitals for the past 24 hrs: BP Temp Temp src Pulse Resp SpO2 07/03/19 0600 (!) 140/89 37.3 C (99.1 F) Axillary 82 18 95 % 07/03/19 0500 (!) 140/84 07/03/19 0400 133/78 37.2 C (98.9 F) Axillary 80 18 97 % 07/03/19 0300 137/88 07/03/19 0200 (!) 141/84 36.7 C (98.1 F) Axillary 84 18 97 % 07/03/19 0100 136/76 80 18 96 % 07/03/19 0000 (!) 143/86 38.6 C (101.5 F) Axillary 86 16 97 % 07/02/19 2300 (!) 143/86 38.3 C (100.9 F) Axillary 102 98 % 07/02/19 2200 (!) 144/90 92 98 % 07/02/19 2100 (!) 145/90 90 16 98 % 07/02/19 2000 (!) 151/85 38.8 C (101.9 F) Axillary 89 16 97 % 07/02/19 1900 (!) 157/93 38.6 C (101.5 F) Axillary 90 16 97 % 07/02/19 1800 (!) 155/96 38.3 C (101 F) Axillary 92 18 98 % 07/02/19 1700 (!) 159/99 07/02/19 1630 38.4 C (101.1 F) Axillary 07/02/19 1500 (!) 142/96 88 07/02/19 1430 (!) 148/93 85 07/02/19 1415 (!) 150/99 95 07/02/19 1200 (!) 139/97 36.4 C (97.6 F) Oral 90 18 99 % 07/02/19 1100 37.2 C (98.9 F) Oral 88 18 98 % 07/02/19 1030 (!) 148/92 37.3 C (99.1 F) Oral 92 18 97 % 07/02/19 1000 (!) 154/97 37.3 C (99.1 F) Oral 95 18 97 % 07/02/19 0929 (!) 154/95 37.1 C (98.8 F) Oral 91 18 97 % 07/02/19 0915 (!) 160/101 37.1 C (98.8 F) Oral 98 18 100 % 07/02/19 0900 (!) 158/97 37.1 C (98.8 F) Oral 92 20 99 % 07/02/19 0845 (!) 155/100 36.8 C (98.2 F) Oral 89 18 97 % 07/02/19 0815 (!) 145/94 36.9 C (98.4 F) Oral 104 18 96 % 07/02/19 0800 (!) 141/92 36.9 C (98.4 F) Oral 90 18 96 % Intake/Output Summary (Last 24 hours) at 07/03/2019 0756 Last data filed at 07/03/2019 0630 Gross per 24 hour Intake 1830 ml Output 2800 ml Net -970 ml PE: General: Patient appearing fatigued and pale. In no acute distress. Lungs: clear to auscultation bilaterally Cardiology: Tachycardic rate with regular rhythm. No murmurs, gallops, rubs. No extra heart sounds. Abdomen: appropriate tenderness to palpation, soft, bowel sounds present. Fundus is firm and at umbilicus Incision: Incision clean and dry. Steri-strips Extremities: no clubbing, cyanosis, or edema : deferred due to recent check. MEDS: Current Facility-Administered Medications Medication Dose Route Frequency Last Rate Last Dose acetaminophen (TYLENOL) tablet 650 mg 650 mg Oral Q6HPRN 650 mg at 2257 morpHINE injection 2 mg 2 mg Slow IV Push Q3HPRN piperacillin-tazobactam (ZOSYN) 3.375 gram/50 mL Piggyback 3.375 g 3.375 g IV Piggyback Q6H ABX 3.375 g at 07/03/19 0602 traMADol (ULTRAM) tablet 50 mg 50 mg Oral Q6HPRN 50 mg at 07/03/19 0630 bisacodyl (DULCOLAX) suppository 10 mg 10 mg Rectal QDAILYPRN diphenhydrAMINE (BENADRYL) 25 mg in NaCl 0.9% (NS) piggyback 25 mg IV Piggyback Q6HPRN diphenhydrAMINE (BENADRYL) tablet 25 mg 25 mg Oral Q6HPRN docusate calcium (SURFAK) capsule 240 mg 240 mg Oral QDAILYPRN 240 mg at 07/02/19 0209 magnesium hydroxide (MILK OF MAGNESIA) 400 mg/5 mL suspension 30 mL 30 mL Oral QDAILYPRN 30 mL at 07/02/19 0209 ondansetron (ZOFRAN (PF)) injection 4 mg 4 mg Slow IV Push Q8HPRN simethicone (GAS RELIEF) chewable tablet 160 mg 160 mg Oral PC+HSPRN 160 mg at 07/02/19 0209 naloxone (NARCAN) injection 0.1 mg 0.1 mg Slow IV Push SEE-INSTRUCTIONS LABS: WBC (10*3/L) Date Value 07/02/2019 16.33 (H) 07/01/2019 15.60 (H) HGB (g/dL) Date Value 07/02/2019 6.4 (L) 07/01/2019 7.0 (L) HCT (%) Date Value 07/02/2019 20.5 (L) 07/01/2019 21.7 (L) PLT (10*3/L) Date Value 07/02/2019 184 07/01/2019 193 Assessment/Plan: Mya Carrillo is a 18 year old POD#4 s/p primary LTCS on 06/30/19 at 38w6d 2028 for failure to progress, complicated by EBL of 1500cc and chorio. Postoperative Review: - Admitted for: IOL - Surgical procedure: Primary section - Skin incision: pfannenstiel - Closure: suture - Estimated blood loss: 1500 mL - Intraoperative Complications: EBL 1500cc - Clinical trials: TXA - Preop H/H: 9.4/29.9 - Postop H/H: 6.4/24.2 Chorio - febrile following delivery (07/01 @ 0315 to 38.1) - s/p amp, gent, metronidazole x24h - switched to Zosyn on 07/02 since patient continued to spike fevers - Ucx and BloodCx collected and pending - Last febrile to 38.6 on 07/03 @ 0000 Acute blood loss - EBL: 1500cc - Hgb: 9.4 (06/29 -> 6.4 (07/01) -> 1 unit pRBCs -> 7.8 (07/01) -> 7.0 (07/01) -> 6.4(07/02)-->1 unit pRBCs-->8.1 - s/p normal FAST exam performed by faculty - Patient asymptomatic this AM - VSS Preeclampsia without severe features - based on mild ranging BPs and a Pr/Cr 0.5 - asymptomatic - BPs overnight: mild ranging 06/29/2019 19:00 HGB 9.4 (L) PLT x10^3 236 CREATININE 0.48 (L) URIC ACID 5.5 Protein/Creatinine Ratio Urine 0.5 ALT(SGPT) 15 AST(SGOT) 25 LDH 453 Antepartum course reviewed - seronegative, Rimmune, VZVimmune,B positive/IATnegative, GBSnegative, Papunderage -[facility] Postoperative care: - Diet: Advance as tolerated - Fluid: Encourage oral intake - Activity: Encourage ambulation and incentive spirometry - Pain: Joaquin and Ibuprofen - DVT prophylaxis: SCDs and TEDs when not ambulating Discharge Planning - Contraception: undecided - Follow up in 5-7 days for incision check and/or staple removal at [facility] - Follow Up: follow-up in 3-6 weeks at [facility] - Dispo: Anticipate discharge POD 2-3 Baby's Status - APGARs 8 , 9 - Weight: 3685 g Kate Dugan MD [facility] Resident Physician Associated attestation - Nicolle Washburn MD - 07/03/2019 7:59 PM CDTI personally examined the patient on 07/03/[address] Dugan's resident note as written . I actively participated in the decision-making process. Please see the resident's note for additional details. Chanel Avila MD - 07/03/2019 5:00 AM CDTR4 OB Note Pt with Tmax of 101.5 at 0000 overnight. Tylenol ordered with improvement. Currently afebrile. Pulsein 80s, BPs at baseline, 02 sat 97-98% on RA. Patient comfortable, currently asleep. Has not c/o pain during shift. Ambulating to and from bathroom. Overall stable. Will continue to monitor. Chanel Avila MDElectronically signed by Chanel Avila MD at 2018 7:09 AM CDTSpencer, Justin Becker MD - 07/02/2019 5:56 PM CDT Progress Note 07/02/2019 5:57 PM Subjective: Patient has no complaints Objective: Vitals: 07/02/19 1430 07/02/19 1500 07/02/19 1630 07/02/19 1700 BP: (!) 148/93 (!) 142/96 (!) 159/99 Patient Position: Pulse: 85 88 Resp: Temp: 38.4 C (101.1 F) TempSrc: Axillary SpO2: Weight: Physical Exam: General: patient alert and in no acute distress HEENT: symmetric, negative for masses Lungs: unlabored breathing Cardiology: peripheral pulses intact and regular Abdomen: Appropriately tender to palpation post-op, incision c/d/i Extremities: no clubbing, cyanosis, or edema Neuro: patient moving all extremities, no facial droop : deferred Labs: Recent Labs 07/02/19 1322 07/02/19 1440 07/02/19 1451 HGB 8.1* -- -- PLT 216 -- -- CREAT -- -- 0.60 URICACID -- -- 5.4 ALT -- -- 19 AST -- -- 33 LDH -- -- 796* PROCRTUR -- 0.5 -- Results for MYA CARRILLO ( ) as of 07/02/2019 17:57 07/01/2019 00:37 07/01/2019 14:50 07/02/2019 05:25 07/02/2019 13:22 WBC x10^3 16.46 (H) 15.60 (H) 16.33 (H) 19.48 (H) HGB 6.4 (L) 7.0 (L) 6.4 (L) 8.1 (L) HCT 20.6 (L) 21.7 (L) 20.5 (L) 24.9 (L) PLT x10^3 204 193 184 216 Assessment: Mya Carrillo is a 18 year old at 39w0d POD#1 s/p primary CS complicated by chorioamnionitis and hemorrhage - S/p 2 units pRBCs with appropriate response - Fever 101.1 @ 1630 today, antibiotics possibly not appropriate - Tox labs normal and BP normal-mild - Good UOP Plan: - Switch abx to Zosyn - UCx and BCx sent after fever - Avoid antipyretics to unmask fevers Justin Ware MD Atilio Austin MD - 07/02/2019 2:13 PM Doreen Carrillo 07/02/2019 2:14 PM Patient s/p additional prbc (total now of 2). Hb rise from 6.4 --> 8.1. WBC increased from 16.33 --> 19.48. Differential pending. Patient with nausea, vomiting after ice chips. Reports flatus, nobm yet. UOP adequate. Remains afebrile. BPs now mild ranging -- will send tox labs. Abd exam wnl forpost-op state; bs active x4. Will bring down to L&D for further eval and monitoring. D/W Dr. Ritchie Gold MD OBGYN PGY2 07/02/19 Merlene Hess MD - 07/02/2019 8:42 AM CDTClarification: Patient was enrolled into TXA, however due to atony and EBL 1500 cc in- operatively received an additional 1g of TXA (wothout knowing the study randomization group) and Hemabate, additional Oxytocin at which point bleeding was controled. 8: 45 AM Atilio Austin MD - 07/02/2019 8:06 AM Doreen Carrillo 07/02/2019 8:26 AM 1000mcg misoprostol placed AK. Patient to receive additional unit pRBC. Atilio Gold MD OBGYN PGY2 07/02/19 Chanel Rangel MD - 07/02/2019 7:14 AM CDTR4 OB Note Evaluated patient w/ Dr. Rodriges at bedside due to abdominal pain. Bedside FAST exam unremarkable.Clots noted within lower uterine segment. Bimanual exam performed and clots extracted. Will administer 1000 mcg of misoprostol rectally. Hemoglobin dropped from 7 back to 6.4. Plan to administer additional 1U pRBC at this time. Pain at this time presumed to be from gas pain. Will optimize bowel regimen. Chanel Avila MD 07/02/2019 7:27 AM Sveta Redding MD - 07/02/2019 7: 02 AM CDT POST-OPERATIVE PROGRESS NOTE 07/02/2019 7:02 AM Subjective: Overnight patient was seen due to uncontrolled pain. Evaluated by R4 and faculty. FAST exam was negative. Clots were noted within lower uterine segment. Sanchez call is to place misoprostol 1000 mcg AK this AM. Abdominal pain presumed to be gas pain. Her pain is not well controlled on oral pain medications. She is not tolerating a regular diet. She has not passed flatus. She is not ambulating without difficulty. Lochia is moderate. She is urinatingwithout weston. Patient denies chest pain, SOB, n/v, headache, RUQ pain, vision changes. She endorsesdizziness when she ambulates. She has not had any syncopal episodes. Objective: VITALS: Patient Vitals for the past 24 hrs: BP Temp Temp src Pulse Resp SpO2 07/02/19 0400 129/73 36.7 C (98.1 F) Oral 100 18 98 % 07/02/19 0000 129/71 36.4 C (97.6 F) Oral 92 18 97 % 07/01/190 (!) 141/84 37.2 C (99 F) Oral 97 19 97 % 07/01/19 1900 126/57 37 C (98.6 F) Axillary 96 18 96 % 07/01/19 1800 128/68 37.1 C (98.7 F) Axillary 94 19 97 % 07/01/19 1700 134/69 37.2 C (98.9 F) Axillary 91 19 97 % 07/01/19 1600 114/64 36.9 C (98.5 F) Axillary 93 18 96 % 07/01/19 1530 37.8 C (100.1 F) Axillary 07/01/19 1500 127/74 96 17 99 % 07/01/19 1400 126/66 37.1 C (98.7 F) Axillary 91 19 98 % 07/01/19 1300 123/70 90 17 99 % 07/01/19 1200 (!) 122/98 36.9 C (98.4 F) Axillary 107 18 99 % 07/01/19 1100 132/81 92 19 98 % 07/01/19 1000 127/75 36.9 C (98.4 F) Axillary 93 17 99 % 07/01/19 0900 126/81 95 16 97 % 07/01/19 0800 127/77 37.3 C (99.1 F) Axillary 81 17 98 % 07/01/19 0730 125/72 84 17 98 % I/O: Intake/Output Summary (Last 24 hours) at 07/02/2019 07 Last data filed at 07/02/2019 0520 Gross per 24 hour Intake 2015 ml Output 2755 ml Net -740 ml PE: General: Patient appearing fatigued and pale. In no acute distress. Lungs: clear to auscultation bilaterally Cardiology: Tachycardic rate with regular rhythm. No murmurs, gallops, rubs. No extra heart sounds. Abdomen: normal tenderness to palpation, soft, bowel sounds present. Fundus is firm and at umbilicus Incision: Incision clean and dry. Extremities: no clubbing, cyanosis, or edema : deferred due to recent check. MEDS: Current Facility-Administered Medications Medication Dose Route Frequency Last Rate Last Dose ampicillin (POLYCILLIN-N) 2,000 mg in NaCl 0.9% (NS) 100 mL MINI-BAG 2 g IV Piggyback Q6H ABX2,000 mg at 07/02/19 0522 bisacodyl (DULCOLAX) suppository 10 mg 10 mg Rectal QDAILYPRN diphenhydrAMINE (BENADRYL) 25 mg in NaCl 0.9% (NS) piggyback 25 mg IV Piggyback Q6HPRN diphenhydrAMINE (BENADRYL) tablet 25 mg 25 mg Oral Q6HPRN docusate calcium (SURFAK) capsule 240 mg 240 mg Oral QDAILYPRN 240 mg at 07/02/19 0209 gentamicin 350 mg in NaCl 0.9% (NS) 250 mL 350 mg IV Piggyback ONCE HYDROcodone-acetaminophen (NORCO 5) 5-325 mg tablet 1 tablet 1 tablet Oral Q6HPRN 1 tablet at07/01/19 1102 HYDROcodone-acetaminophen (NORCO 5) 5-325 mg tablet 2 tablet 2 tablet Oral Q6HPRN 2 tablet at07/02/19 0316 ibuprofen (IBU) tablet 600 mg 600 mg Oral Q6HPRN 600 mg at 07/02/19 0209 magnesium hydroxide (MILK OF MAGNESIA) 400 mg/5 mL suspension 30 mL 30 mL Oral QDAILYPRN 30 mL at 07/02/19 0209 metroNIDAZOLE (FLAGYL I.V.) Piggyback 500 mg 500 mg IV Piggyback Q8H ABX 500 mg at 07/02/19 0211 ondansetron (ZOFRAN (PF)) injection 4 mg 4 mg Slow IV Push Q8HPRN simethicone (GAS RELIEF) chewable tablet 160 mg 160 mg Oral PC+HSPRN 160 mg at 07/02/19 0209 morpHINE 2 mg/mL LOAD & RESCUE INJECTION SYRG Slow IV Push SEE- INSTRUCTIONS 4 mg at 06/30/19 2322 naloxone (NARCAN) injection 0.1 mg 0.1 mg Slow IV Push SEE-INSTRUCTIONS naloxone (NARCAN) injection 0.4 mg 0.4 mg Slow IV Push PRN - SEE INSTRUCTIONS LABS: WBC (10*3/L) Date Value 07/02/2019 16.33 (H) 07/01/2019 15.60 (H) HGB (g/dL) Date Value 07/02/2019 6.4 (L) 07/01/2019 7.0 (L) HCT (%) Date Value 07/02/2019 20.5 (L) 07/01/2019 21.7 (L) PLT (10*3/L) Date Value 07/02/2019 184 07/01/2019 193 Assessment: Mya Carrillo is a 18 year old POD#1 s/p primary LTCS on 06/30/19 at 38w6d 2028 for failure to progress, complicated by EBL of 1500cc. Patient is recovering well: hemodynamically stable, good UOP,pain well-controlled, vitals within normal limits. Plan: Postoperative Review: - Admitted for: IOL - Surgical procedure: Primary section - Skin incision: pfannenstiel - Closure: suture - Estimated blood loss: 1500 mL - Intraoperative Complications: EBL 1500cc - Clinical trials: TXA - Preop H/H: 9.4/29.9 - Postop H/H: 6.4/24.2 Acute blood loss - EBL: 1500cc - Hgb: 9.4 (06/29 -> 6.4 (07/01) -> 1 unit pRBCs -> 7.8 (07/01) -> 7.0 (07/01) -> 6.4(07/02) - Patient endorsing dizziness with ambulation, no syncope - Evaluated by R4 and faculty last night due to abdominal pain, FAST exam negative, presumed to be gas; ultrasound at bedside showing thick EMS with clots in INEZ - Tachycardic rate in 100s, other VSS - Plan: Will administer another unit of pRBCs at this time, 1000 mcg misoprostol AK this AM Preeclampsia without severe features - based on mild ranging BPs and a Pr/Cr 0.5 - asymptomatic - BPs 120-140s/70-80s overnight 06/29/2019 19:00 HGB 9.4 (L) PLT x10^3 236 CREATININE 0.48 (L) URIC ACID 5.5 Protein/Creatinine Ratio Urine 0.5 ALT(SGPT) 15 AST(SGOT) 25 LDH 453 Antepartum course reviewed - seronegative, Rimmune, VZVimmune,B positive/IATnegative, GBSnegative, [facility]: - Diet: Advance as tolerated - Fluid: Encourage oral intake - Activity: Encourage ambulation and incentive spirometry - Pain: Joaquin and Ibuprofen - DVT prophylaxis: SCDs and TEDs when not ambulating Discharge Planning - Contraception: undecided - Follow up in 5-7 days for incision check and/or staple removal at [facility] - Follow Up: follow-up in 3-6 weeks at [facility] - Dispo: Anticipate discharge POD 2-3 Baby's Status - APGARs 8 , 9 - Weight: 3685 g - Baby at bedside with mother Disposition: POD#1. Patient with dropping hemoglobin to 6.4 this AM. Will administer another unit ofpRBCs and 1000 mcg misoprostol AK. Sanchez call will follow up this patient later in the AM. Abdominal pain presumed to be gas pain by R4 and faculty last night. Needs to meet the following milestones: diet, ambulation, flatus, pain control. Needs BP check 1 week PP. Sveta Medel MD PGY-2, Department of Obstetrics and Gynecology Pager# [phone] signed by Walker Oakley MD at 07/02/2019 11 :14 AM CDT Associated attestation - Walker Oakley MD - 07/02/2019 11:14 AM CDT I have seen and evaluated on 07/02/19 the patient thereby confirming the ansari portions of the history and physical examination. I discussed the case with the resident and agree with the findings and plan as documented in the resident note. Patient Active Problem List Diagnosis BMI 31.0-31.9,adult Obesity affecting Late care affecting in third trimester Screening-pulmonary TB High-risk in third trimester Genital condyloma, female Abnormal maternal glucose tolerance, antepartum Chlamydia infection affecting in third trimester Decreased movements in third trimester, single or unspecified fetus 38 weeks gestation of Obesity (BMI 30-39.9) Gasper Luo Jasmin, MD - 07/01/2019 7:37 AM CDT POST-OPERATIVE PROGRESS NOTE 07/01/2019 7:38 AM Subjective: Overnight patient had no complaints. Her pain is controlled on oral pain medications. She is not yet tolerating a regular diet. She has not passed flatus. She is not ambulating. Lochia is unknown. She is urinating with a weston. Patient denies chest pain, SOB, n/v, headache, RUQ pain, vision changes , dizziness. Objective: VITALS: Patient Vitals for the past 24 hrs: BP Temp Temp src Pulse Resp SpO2 07/01/19 0730 125/72 07/01/19 0700 123/71 07/01/19 0630 133/85 37.9 C (100.3 F) Axillary 87 18 97 % 07/01/19 0615 133/86 37.9 C (100.3 F) Axillary 89 18 98 % 07/01/19 0545 137/83 38.4 C (101.2 F) Axillary 85 19 100 % 07/01/19 0500 132/84 38.3 C (101 F) Axillary 91 18 99 % 07/01/19 0430 130/83 86 18 99 % 07/01/19 0400 128/82 37.7 C (99.9 F) Oral 86 18 99 % 07/01/19 0330 128/79 37.7 C (99.9 F) Oral 83 18 99 % 07/01/19 0315 123/71 38.1 C (100.6 F) Axillary 83 18 100 % 07/01/19 0300 120/79 37.8 C (100 F) Axillary 82 18 100 % 07/01/19 0245 119/74 37 C (98.6 F) Oral 85 18 99 % 07/01/19 0240 118/69 36.8 C (98.3 F) Oral 85 18 99 % 07/01/19 0235 126/59 37.4 C (99.3 F) Oral 82 18 100 % 07/01/19 0133 114/64 36.7 C (98.1 F) Oral 85 18 99 % 07/01/19 0030 86 98 % 06/30/19 2314 103/63 36.4 C (97.5 F) 84 16 97 % 06/30/19 2240 100 22 95 % 06/30/19 2225 124/89 92 19 100 % 06/30/19 2210 (!) 134/91 102 21 100 % 06/30/19 2152 124/79 100 23 100 % 06/30/19 2140 119/83 36.4 C (97.5 F) Axillary 62 18 99 % 06/30/19 1930 129/77 86 18 97 % 06/30/19 1900 130/81 37.5 C (99.5 F) Axillary 87 18 96 % 06/30/19 1830 129/83 88 17 97 % 06/30/19 1815 126/69 93 18 96 % 06/30/19 1800 127/69 37.3 C (99.2 F) Axillary 94 16 96 % 06/30/19 1745 133/71 98 18 96 % 06/30/19 1730 (!) 148/83 87 95 % 06/30/19 1715 (!) 149/88 37.7 C (99.9 F) Axillary 88 18 99 % 06/30/19 1700 (!) 151/98 81 16 99 % 06/30/19 1600 113/67 80 18 99 % 06/30/19 1545 117/71 79 99 % 06/30/19 1530 123/68 81 99 % 06/30/19 1500 116/64 37 C (98.6 F) Axillary 80 17 96 % 06/30/19 1415 123/59 87 98 % 06/30/19 1400 (!) 138/94 36.9 C (98.5 F) Axillary 89 16 98 % 06/30/19 1330 93 98 % 06/30/19 1315 127/69 94 97 % 06/30/19 1300 124/68 36.8 C (98.3 F) Axillary 92 18 97 % 06/30/19 1245 123/65 91 99 % 06/30/19 1230 130/90 100 18 98 % 06/30/19 1200 131/82 36.9 C (98.4 F) Axillary 92 18 96 % 06/30/19 1156 137/75 98 06/30/19 1154 138/84 94 16 96 % 06/30/19 1152 133/83 88 06/30/19 1150 130/89 93 96 % 06/30/19 1148 127/79 92 06/30/19 1146 133/82 87 06/30/19 1144 136/75 88 06/30/19 1142 124/81 93 06/30/19 1140 124/81 93 06/30/19 1138 130/83 93 97 % 06/30/19 1136 (!) 129/101 98 06/30/19 1134 89 16 97 % 06/30/19 1132 137/85 98 99 % 06/30/19 1130 130/85 96 97 % 06/30/19 1128 137/83 97 97 % 06/30/19 1126 134/86 94 97 % 06/30/19 1100 123/79 37.2 C (98.9 F) Axillary 85 18 97 % 06/30/19 1030 (!) 145/89 91 20 97 % 06/30/19 1000 138/86 36.7 C (98 F) Axillary 85 18 97 % 06/30/19 0930 (!) 146/82 85 95 % 06/30/19 0900 (!) 145/90 36.8 C (98.3 F) Axillary 79 16 99 % 06/30/19 0830 134/85 77 18 98 % 06/30/19 0800 134/79 36.8 C (98.3 F) Axillary 85 16 96 % I/O: Intake/Output Summary (Last 24 hours) at 07/01/2019 0738 Last data filed at 07/01/2019 0345 Gross per 24 hour Intake 5680 ml Output 1805 ml Net 3875 ml PE: General: patient alert and in no acute distress Lungs: clear to auscultation bilaterally Cardiology: regular rate and rhythm, no murmur Abdomen: normal tenderness to palpation, soft, bowel sounds present. Fundus is firm and at umbilicus Incision: Clean, dry, and intact, covered Extremities: no clubbing, cyanosis, or edema : deferred MEDS: Current Facility-Administered Medications Medication Dose Route Frequency Last Rate Last Dose gentamicin 350 mg in NaCl 0.9% (NS) 250 mL 350 mg IV Piggyback ONCE metroNIDAZOLE (FLAGYL I.V.) Piggyback 500 mg 500 mg IV Piggyback ONCE 500 mg at 07/01/19 0728 docusate (COLACE) capsule 100 mg 100 mg Oral DAILY ketorolac (TORADOL) injection 30 mg 30 mg Slow IV Push PRN lactated ringers IV infusion 1,000 mL 1,000 mL IV Infusion CONTINUOUS Stopped at 06/30/192 LR 1000 mL + oxytocin 20 units IV Solution IV Infusion CONTINUOUS 125 mL/ hr at 06/30/19 2216 morpHINE 2 mg/mL LOAD & RESCUE INJECTION SYRG Slow IV Push SEE- INSTRUCTIONS 4 mg at 06/30/19 2322 morpHINE 30 mg/30 mL (fixed dose) TRACK MAINTAINER injection Intravenous CONTINUOUS naloxone (NARCAN) injection 0.1 mg 0.1 mg Slow IV Push SEE-INSTRUCTIONS naloxone (NARCAN) injection 0.4 mg 0.4 mg Slow IV Push PRN - SEE INSTRUCTIONS ondansetron (ZOFRAN (PF)) injection 4 mg 4 mg Slow IV Push ONCE oxytocin (PITOCIN) 40 Units in lactated ringers 1,000 mL IV infusion IV Infusion PRN sennosides (SENOKOT) tablet 8.6 mg 8.6 mg Oral DAILY sodium citrate-citric acid (BICITRA) 500-334 mg/5 mL solution 30 mL 30 mL Oral PRE-PROCEDURE ONCE D5W-LR IV infusion 1,000 mL 1,000 mL IV Infusion CONTINUOUS 125 mL/hr at 1900 1,000 mLat 06/29/19 1900 lactated ringers IV infusion 500 mL 500 mL IV Infusion PRN - SEE INSTRUCTIONS lidocaine 1% (PF) (XYLOCAINE) injection 0.3 mL 0.3 mL Infiltration PRN - SEE INSTRUCTIONS lidocaine 1% (XYLOCAINE) 10 mg/mL (1 %) injection 50 mL 50 mL Infiltration PRN - SEE INSTRUCTIONS sodium citrate-citric acid (BICITRA) 500-334 mg/5 mL solution 30 mL 30 mL Oral PRE-PROCEDURE ONCE LABS: WBC (10*3/L) Date Value 07/01/2019 17.51 (H) 07/01/2019 16.46 (H) HGB (g/dL) Date Value 07/01/2019 7.8 (L) 07/01/2019 6.4 (L) HCT (%) Date Value 07/01/2019 25.1 (L) 07/01/2019 20.6 (L) PLT (10*3/L) Date Value 07/01/2019 186 07/01/2019 204 Assessment: Mya Carrillo is a 18 year old POD#0 s/p primary LTCS on 06/30/19 at 38w6d 2028 for failure to progress, complicated by EBL of 1500cc. Patient is recovering well: hemodynamically stable, good UOP,pain well-controlled, vitals within normal limits. Plan: Postoperative Review: - Admitted for: IOL - Surgical procedure: Primary section - Skin incision: pfannenstiel - Closure: suture - Estimated blood loss: 1500 mL - Intraoperative Complications: EBL 1500cc - Clinical trials: TXA - Preop H/H: 9.4/29.9 - Postop H/H: 6.4/24.2 Acute blood loss - EBL: 1500cc - s/p 1U pRBCs, repeat Hbg 7.8 - VSS, UOP adequate - patient asymptomatic though has been sleeping and has not ambulated - will get repeat CBC at 1500 Preeclampsia without severe features - based on mild ranging BPs and a Pr/Cr 0.5 - asymptomatic - BPs normotensive 06/29/2019 19:00 HGB 9.4 (L) PLT x10^3 236 CREATININE 0.48 (L) URIC ACID 5.5 Protein/Creatinine Ratio Urine 0.5 ALT(SGPT) 15 AST(SGOT) 25 LDH 453 Antepartum course reviewed - seronegative, Rimmune, VZVimmune,B positive/IATnegative, GBSnegative, Papunderage -[facility] Postoperative care: - Diet: Advance as tolerated - Fluid: Encourage oral intake - Activity: Encourage ambulation and incentive spirometry - Pain: Joaquin and Ibuprofen - DVT prophylaxis: SCDs and TEDs when not ambulating Discharge Planning - Contraception: undecided - Follow up in 5-7 days for incision check and/or staple removal at [facility] - Follow Up: follow-up in 3-6 weeks at [facility] - Dispo: Anticipate discharge POD 2-3 Baby's Status - APGARs 8 , 9 - Weight: 3685 g Kate Dugan MDElectronically signed by Francisco Rodriges MD at 2018 1:38 PM CDT Associated attestation - Francisco Rodriges MD - 07/01/2019 1:38 PM CDTI evaluated and examined the patient with Dr. Dugan on 07/01/2019. I agree with plan as listed onthe providers note. MD Alla Santoro Christopher, MD - 07/01/2019 6:01 AM Doreen Carrillo 07/01/2019 6:01 AM S/p 1UpRBC, Hb now 7.8. 2h after completion of transfusion, temps of 101.7, 101.2 documented. Will start amp/gent/flagyl. D/W Dr. Flaca Gold MD OBGYN PGY2 07/01/19 Atilio Austin MD - 07/01/2019 2:26 AM Doreen Carrillo 07/01/2019 2:26 AM S/p primary c/s with ebl 1300mL; Hb 9.4 --> 6.4. VSS. Due to drop in Hb, will plan to transfuse 2U pRBC with f/u H/H after first unit. Patient informed of plan and agrees. All questions answered. D/w Dr. Thayer/Greta Gold MD OBGYN PGY2 07/01/19 Tatiana Alegria MD - 06/30/2019 7:47 PM CDTR4 Progress Note: Patient s/p 13 hour of AROM and pitocin without cervical change, /2. Strip is cat 1. Plan for primary csection. Patient counseled and agrees to risk and benefits. OR orders placed and team was notified. Discussed with Dr. Greta Thayer MD PGY-4 Obstetrics and Gynecology Henry acuña MD - 06/30/2019 2:42 PM CDTIntrapartum Progress Note 06/30/2019 2:42 PM Subjective: Patient has no complaints Objective: Vitals last 24 hours: Temp: [36.4 C (97.5 F)-37.2 C (98.9 F)] 36.9 C (98.5 F) Pulse: [67-101] 93 Resp: [16-20] (P) 18 BP: (93-155)/(60-113) 127/69 Intake/Output : No intake/output data recorded. I/O last 3 completed shifts: In: - Out: 1100 [Urine:1100] Assessment Active movement: Yes Mode: FSE Baseline FHR (bpm): 130 Variability: Moderate Decel Frequency: None FHR Category: I Uterine Activity: Mode: IUPC Contractions (number / 10 minute): flushed&zero'd Contraction duration (seconds): 60-70 Resting tone: Soft;Palpation Membrane Status Membrane status: Artificial Rupture date: 06/30/19 Rupture time: 0630 Amniotic fluid color: Clear Cervical Exam 5 / 75 % / -2 Assessment/Plan: Mya Carrillo is a 18 year old at 38w5d OB Assessment: IOL, PreE OB Plan: s/p FB/LDP, Pit@0530 Additional Comments/Detail: IUPC replaced, continue pitocin augmentation Ripening Agent: Oxytocin Intrapartum Plan: Increase Pitocin induction Henry Willson MD Karen Edmond MD - 06/30/2019 6:36 AM CDTIntrapartum Progress Note 06/30/2019 6:37 AM Subjective: Patient has no complaints Objective: Vitals last 24 hours: Temp: [36.4 C (97.5 F)-36.8 C (98.3 F)] 36.4 C (97.5 F) Pulse: [67-101] 80 Resp: [17-20] 18 BP: (93-155)/(61-113) 129/78 Intake/Output : I/O this shift: In: - Out: 1100 [Urine:1100] No intake/output data recorded. Assessment Active movement: Yes Mode: EFM Baseline FHR (bpm): 130 Variability: Moderate Decel Frequency: None FHR Category: I Uterine Activity: Mode: [place] Contractions (number / 10 minute): 4 Contraction duration (seconds): 50-70 Resting tone: Soft Membrane Status Membrane status: Artificial Cervical Exam 5 / 50 % / -2 Assessment/Plan: Mya Carrillo is a 18 year old at 38w5d OB Assessment: IOL, PreE OB Plan: s/p FB/LDP, Pit@0530 Additional Comments/Detail: AROM clear fluid. Internals placed Ripening Agent: Oxytocin Intrapartum Plan: Continue active labor management Karen Chapman MD Tatiana Alegria MD - 06/29/2019 9:17 PM CDT R4 Progress Note: Patient rules in for preeclampsia without severe features based on mild ranging BPs and a Pr/Cr 0.5.All other tox labs neg below and headache resolved. Will continue to monitor. 06/29/2019 19:00 HGB 9.4 (L) PLT x10^3 236 CREATININE 0.48 (L) URIC ACID 5.5 Protein/Creatinine Ratio Urine 0.5 ALT(SGPT) 15 AST(SGOT) 25 LDH 453 Tatiana Thayer MD PGY-4 Obstetrics and Gynecology documented in this encounter Plan of Treatment Date Type Specialty Care Team Description 07/11/2019 Nurse Visit OB Satellites Visit, [facility] Nurse 07/26/2019 Routine Visit OB Satellites Cate Jesus, [employer] [address] [place] [address] [phone] Name Type Priority Associated Diagnoses Date/Time BLOOD CULTURE SCREEN LAB STAT 07/02/2019 4:47 PM CDT BLOOD CULTURE SCREEN LAB GALLITO 07/02/2019 4:48 PM CDT Name Type Priority Associated Diagnoses Order Schedule Rho (D) Immune Globulin LAB Routine ONCE for 1 Occurrences starting 07/01/2019 until 07/01/2019 PROFILE / HEMOGRAM LAB Routine ONCE for 1 Occurrences starting 07/03/2019 until 07/03/2019 Health Maintenance Due Date Last Done Comments [...] Procedure Name Priority Date/Time Associated Comments Diagnosis URINE CULTURE GALLITO 07/02/2019 4:39 Results for this PM CDT procedure are in the results section. URIC ACID STAT 07/02/2019 2:51 Results for this PM CDT procedure are in the results section. LACTATE DEHYDROGENASE STAT 07/02/2019 2:51 Results for this PM CDT procedure are in the results section. ALANINE AMINO STAT 07/02/2019 2:51 Results for this TRANSFERASE(SGPT PM CDT procedure are in the results section. CREATININE STAT 07/02/2019 2:51 Results for this PM CDT procedure are in the results section. SGOT (ASPARTATE AMINO STAT 07/02/2019 2:51 Results for this TRANSFER) PM CDT procedure are in the results section. PROTEIN CREAT RATIO STAT 07/02/2019 2:40 Results for this URINE RANDOM PM CDT procedure are in the results section. URINALYSIS STAT 07/02/2019 2:40 Results for this PM CDT procedure are in the results section. CBC WITH DIFFERENTIAL Routine 07/02/2019 1:22 Results for this PM CDT procedure are in the results section. CBC WITH DIFF Routine 07/02/2019 1:22 Results for this PM CDT procedure are in the results section. PREPARE PACKED RBC STAT 07/02/2019 8:31 Results for this AM CDT procedure are in the results section. CBC WITH DIFFERENTIAL STAT 07/02/2019 5:25 Results for this AM CDT procedure are in the results section. CBC WITH DIFF STAT 07/02/2019 5:25 Results for this AM CDT procedure are in the results section. CBC WITH DIFFERENTIAL Routine 07/01/2019 2:50 Results for this PM CDT procedure are in the results section. CBC WITH DIFF Routine 07/01/2019 2:50 Results for this PM CDT procedure are in the results section. PROFILE / HEMOGRAM GALLITO 07/01/2019 5:09 Results for this AM CDT procedure are in the results section. TRANSFUSE PACKED RBC STAT 07/01/2019 3:57 AM CDT CBC WITH DIFFERENTIAL Routine 07/01/2019 12:37 Results for this AM CDT procedure are in the results section. CBC WITH DIFF Routine 07/01/2019 12:37 Results for this AM CDT procedure are in the results section. VENOUS CORD GAS GALLITO 06/30/2019 8:30 Results for this PM CDT procedure are in the results section. ARTERIAL CORD GAS GALLITO 06/30/2019 8:30 Results for this PM CDT procedure are in the results section. SECTION 06/30/2019 7:52 G1 @ 38.5 wks, FTP PM CDT GALV ONLY - SYPHILIS GALLITO 06/29/2019 7:00 Results for this IGG/IGM PM CDT procedure are in the results section. PROTEIN CREAT RATIO STAT 06/29/2019 7:00 Results for this URINE RANDOM PM CDT procedure are in the results section. CBC WITH DIFFERENTIAL STAT 06/29/2019 7:00 Results for this PM CDT procedure are in the results section. HEPATITIS B SURFACE GALILTO 06/29/2019 7:00 Results for this ANTIGEN PM CDT procedure are in the results section. URINALYSIS STAT 06/29/2019 7:00 Results for this PM CDT procedure are in the results section. CBC WITH DIFF STAT 06/29/2019 7:00 Results for this PM CDT procedure are in the results section. URIC ACID STAT 06/29/2019 7:00 Results for this PM CDT procedure are in the results section. LACTATE DEHYDROGENASE STAT 06/29/2019 7:00 Results for this PM CDT procedure are in the results section. ALANINE AMINO STAT 06/29/2019 7:00 Results for this TRANSFERASE(SGPT PM CDT procedure are in the results section. CREATININE STAT 06/29/2019 7:00 Results for this PM CDT procedure are in the results section. SGOT (ASPARTATE AMINO STAT 06/29/2019 7:00 Results for this TRANSFER) PM CDT procedure are in the results section. TYPE AND SCREEN GALLITO 06/29/2019 6:36 Results for this PM CDT procedure are in the results section. documented in this encounter Results URINE CULTURE (07/02/2019 4:39 PM CDT) URINE CULTURE No aerobic growth [facility] (< 1000 CFU/mL) SERVICES Specimen Urine - URINE, CATHETERIZED Performing Organization Address City/State/Zipcode Phone Number [facility] CLIA: [id number], [address] [place] [address] [facility] Lactate Dehydrogenase (07/02/2019 2:51 PM CDT) LDH 796 (H) 300 - 600 U/L [facility] Specimen Blood - VENOUS Performing Organization Address City/[facility]/Zipcode Phone Number [facility] CLIA: [id number], [address] [place] [address] [facility] Alanine Amino Transferase (SGPT) (07/02/2019 2:51 PM CDT) ALT(SGPT) 19 9 - 51 U/L [facility] Specimen Blood - VENOUS Performing Organization Address City/[facility] Phone Number [facility] CLIA: [id number], [address] [place] [address] [facility] SGOT (Asparate Amino Transfer) (07/02/2019 2:51 PM CDT) AST(SGOT) 33 13 - 40 U/L [facility] Specimen Blood - VENOUS Performing Organization Address [facility] Phone Number [facility] CLIA: [id number], [address] [place] [address] [phone] [facility] Serum Creatinine (07/02/2019 2:51 PM CDT) CREATININE 0.60 0.50 - 1.04 [facility] mg/dL SERVICES eGFR Calculation 128.8 mL/min/1.73m2 [facility] (Non-) SERVICES eGFR Calculation 156.1 mL/min/1.73m2 [facility] () SERVICES Specimen Blood - VENOUS Narrative Performed At Association of Glomerular Filtration Rate (GFR) and Staging [facility] of Kidney Disease* + + + + | GFR (mL/min/1.73 m2)| With Kidney Damage|Without Kidney Damage + + + + |>90|Stage one| Normal + + + + |60-89|Stage two| Decreased GFR + + + + |30-59|Stage three| Stage three + + + + |15-29|Stage four | Stage four + + + + |<15 (or dialysis)|Stage five | Stage five + + + + *Each stage assumes the associated GFR level has been in effect for at least three months.Stages 1 to 5, with or without kidney disease, indicate chronic kidney disease. Notes: Determination of stages one and two (with eGFR >59mL/min/1.73 m2) requires estimation of kidney damage for at least three months as defined by structural or functional abnormalities of the kidney, manifested by either: Pathological abnormalities or Markers of kidney damage (including abnormalities in the composition of the blood or urine or abnormalities in imaging tests). Performing Organization Address [facility] Phone Number [facility] CLIA: [id number], [address] [place] [phone] [facility] Uric Acid Serum (07/02/2019 2:51 PM CDT) URIC ACID 5.4 2.9 - 6.0 mg/dL [facility] Specimen Blood - VENOUS Performing Organization Address [facility] Phone Number [facility] CLIA: [id number], [address] [place] [phone] [facility] Urinalysis (07/02/2019 2:40 PM CDT) APPEARANCE Hazy (A) Clear [facility] COLOR Yellow Yellow [facility] PH 7.0 4.8 - 8.0 [facility] SP GRAVITY 1.015 1.003 - 1.030 [facility] GLU U QUAL Normal Normal [facility] BLOOD 2+ (A) Negative [facility] KETONES Negative Negative [facility] PROTEIN 30 mg/dL (A) Negative [facility] UROBILIN Normal Normal [facility] BILIRUBIN Negative Negative [facility] NITRITE Negative Negative [facility] [place] HEATH Negative Negative [facility] RBC/HPF >182 (H) 0 - 3 HPF [facility] WBC/HPF 2 0 - 5 HPF [facility] BACTERIA Few (A) Negative [facility] MUCOUS Slight (A) Negative LPF [facility] SQ EPITH <1 <=2 HPF [facility] Specimen Urine - URINE, CATHETERIZED Performing Organization Address [facility] Phone Number [facility] CLIA: [id number], [address] [place] [address] [phone] [facility] Protein CREAT Ratio Urine Random (07/02/2019 2:40 PM CDT) T. PROT U 31 mg/dL [facility] CREAT U 64.8 mg/dL [facility] Protein/Creatinine 0.5 0.0 - 2.0 [facility] Ratio Urine Specimen Urine - URINE, CATHETERIZED Performing Organization Address City/State/Zipcode Phone Number [facility] CLIA: [id number], [address] [place] [address] [facility] CBC WITH DIFFERENTIAL (07/02/2019 1:22 PM CDT) WBC 19.48 (H) 4.30 - 11.10 [facility] 10*3/L SERVICES RBC 3.09 (L) 3.93 - 5.25 [facility] 10*6/L SERVICES HGB 8.1 (L) 11.6 - 15.0 [facility] g/dL SERVICES HCT 24.9 (L) 35.7 - 45.2 % [facility] MCV 80.6 80.6 - 95.5 fL [facility] MCH 26.2 25.9 - 32.8 pg [facility] MCHC 32.5 31.6 - 35.1 [facility] g/dL SERVICES RDW-SD 50.5 (H) 39.0 - 49.9 fL [facility] RDW-CV 17.4 (H) 12.0 - 15.5 % [facility] PLT 216 166 - 358 [facility] 10*3/L SERVICES MPV 10.2 9.5 - 12.9 fL [facility] NRBC/100 WBC 0.2 0.0 - 10.0 /100 [facility] WBCs SERVICES NRBC x10^3 0.03 10*3/L [facility] GRAN MAT (NEUT) % 87.2 % [facility] IMM GRAN % 1.20 % [facility] LYMPH % 7.1 % [facility] MONO % 4.2 % [facility] EOS % 0.1 % [facility] BASO % 0.2 % [facility] GRAN MAT x10^3(ANC) 17.00 (H) 1.88 - 7.09 [facility] 10*3/uL SERVICES IMM GRAN x10^3 0.24 (H) 0.00 - 0.06 [facility] 10*3/uL SERVICES LYMPH x10^3 1.38 1.32 - 3.29 [facility] 10*3/uL SERVICES MONO x10^3 0.81 0.33 - 0.92 [facility] 10*3/uL SERVICES EOS x10^3 <0.03 (L) 0.03 - 0.39 [facility] 10*3/uL SERVICES BASO x10^3 0.03 0.01 - 0.07 [facility] 10*3/uL SERVICES Specimen Blood - ARM, LEFT Performing Organization Address City/[facility]/Zipcode Phone Number [facility] CLIA: [id number], [address] [place] [address] [facility] Prepare Packed RBC (in units), 2 Units (07/02/2019 8:31 AM CDT) Cross Match Result Compatible LAB ISBT Blood Type Code 7300 LAB Unit Blood Type B Pos LAB Unit Number [id number] LAB Blood Expiration Date & LAB Time Status Information Issued LAB Product Identification Red Blood Cells LAB Product Code [id number] LAB Comment: Performed at [facility] Laboratory Services - [facility] Blood [place] [address] Toll Free: [phone] CLIA No. [id number] Cross Match Result Compatible LAB ISBT Blood Type Code 7300 LAB Unit Blood Type B Pos LAB Unit Number [id number] LAB Blood Expiration Date & LAB Time Status Information Issued LAB Product Identification Red Blood Cells LAB Product Code [id number] LAB Comment: Performed at [facility] Laboratory Services - [place] [address] Toll Free: CLIA No. [id number] Specimen Performing Organization Address City/[facility]/Zipcode Phone Number BLD LAB CBC WITH DIFFERENTIAL (07/02/2019 5:25 AM CDT) WBC 16.33 (H) 4.30 - 11.10 [facility] 10*3/L SERVICES RBC 2.62 (L) 3.93 - 5.25 [facility] 10*6/L SERVICES HGB 6.4 (L) 11.6 - 15.0 [facility] g/dL SERVICES HCT 20.5 (L) 35.7 - 45.2 % [facility] MCV 78.2 (L) 80.6 - 95.5 fL [facility] SERVICES MCH 24.4 (L) 25.9 - 32.8 pg [facility] SERVICES MCHC 31.2 (L) 31.6 - 35.1 [facility] g/dL SERVICES RDW-SD 47.2 39.0 - 49.9 fL [facility] SERVICES RDW-CV 17.0 (H) 12.0 - 15.5 % [facility] PLT 184 166 - 358 [facility] 10*3/L SERVICES MPV 10.1 9.5 - 12.9 fL [facility] SERVICES NRBC/100 WBC 0.2 0.0 - 10.0 /100 [facility] WBCs SERVICES NRBC x10^3 0.03 10*3/L [facility] SERVICES GRAN MAT (NEUT) % 82.3 % [facility] IMM GRAN % 0.90 % [facility] LYMPH % 10.7 % [facility] MONO % 5.6 % [facility] EOS % 0.4 % [facility] BASO % 0.1 % [facility] GRAN MAT x10^3(ANC) 13.43 (H) 1.88 - 7.09 [facility] 10*3/uL SERVICES IMM GRAN x10^3 0.15 (H) 0.00 - 0.06 [facility] 10*3/uL SERVICES LYMPH x10^3 1.74 1.32 - 3.29 [facility] 10*3/uL SERVICES MONO x10^3 0.92 0.33 - 0.92 [facility] 10*3/uL SERVICES EOS x10^3 0.07 0.03 - 0.39 [facility] 10*3/uL SERVICES BASO x10^3 <0.03 0.01 - 0.07 [facility] 10*3/uL SERVICES Specimen Blood - HAND, RIGHT Performing Organization Address City/State/Zipcode Phone Number [facility] CLIA: [id number], [address] [place] [address] [phone] [facility] CBC WITH DIFFERENTIAL (07/01/2019 2:50 PM CDT) WBC 15.60 (H) 4.30 - 11.10 [facility] 10*3/L SERVICES RBC 2.80 (L) 3.93 - 5.25 [facility] 10*6/L SERVICES HGB 7.0 (L) 11.6 - 15.0 [facility] g/dL SERVICES HCT 21.7 (L) 35.7 - 45.2 % [facility] SERVICES MCV 77.5 (L) 80.6 - 95.5 fL [facility] SERVICES MCH 25.0 (L) 25.9 - 32.8 pg [facility] MCHC 32.3 31.6 - 35.1 [facility] g/dL SERVICES RDW-SD 45.8 39.0 - 49.9 fL [facility] SERVICES RDW-CV 16.5 (H) 12.0 - 15.5 % [facility] PLT 193 166 - 358 [facility] 10*3/L SERVICES MPV 10.3 9.5 - 12.9 fL [facility] NRBC/100 WBC 0.3 0.0 - 10.0 /100 [facility] WBCs SERVICES NRBC x10^3 0.04 10*3/L [facility] SERVICES GRAN MAT (NEUT) % 82.0 % [facility] SERVICES IMM GRAN % 0.50 % [facility] LYMPH % 9.9 % [facility] MONO % 7.4 % [facility] EOS % 0.1 % [facility] BASO % 0.1 % [facility] GRAN MAT x10^3(ANC) 12.79 (H) 1.88 - 7.09 [facility] 10*3/uL SERVICES IMM GRAN x10^3 0.08 (H) 0.00 - 0.06 [facility] 10*3/uL SERVICES LYMPH x10^3 1.55 1.32 - 3.29 [facility] 10*3/uL SERVICES MONO x10^3 1.15 (H) 0.33 - 0.92 [facility] 10*3/uL SERVICES EOS x10^3 <0.03 (L) 0.03 - 0.39 [facility] 10*3/uL SERVICES BASO x10^3 <0.03 0.01 - 0.07 [facility] 10*3/uL SERVICES Specimen Blood - VENOUS Performing Organization Address City/State/Zipcode Phone Number [facility] CLIA: [id number], [address] [place] [address] PROFILE / HEMOGRAM (07/01/2019 5:09 AM CDT) WBC 17.51 (H) 4.30 - 11.10 [facility] 10*3/L SERVICES RBC 3.18 (L) 3.93 - 5.25 [facility] 10*6/L SERVICES HGB 7.8 (L) 11.6 - 15.0 g/dL [facility] SERVICES HCT 25.1 (L) 35.7 - 45.2 % [facility] MCH 24.5 (L) 25.9 - 32.8 pg [facility] MCV 78.9 (L) 80.6 - 95.5 fL [facility] MCHC 31.1 (L) 31.6 - 35.1 g/dL [facility] PLT 186 166 - 358 10*3/L [facility] MPV 10.3 9.5 - 12.9 fL [facility] SERVICES RDW-CV 16.3 (H) 12.0 - 15.5 % [facility] SERVICES RDW-SD 46.4 39.0 - 49.9 fL [facility] NRBC x10^3 0.02 10*3/L [facility] NRBC/100 WBC 0.1 0.0 - 10.0 /100 [facility] WBCs SERVICES IPF % 1.3 - 7.7 % [facility] Specimen Blood - ARM, LEFT Performing Organization Address City/State/Zipcode Phone Number [facility] CLIA: [id number], [address] [place] [address] [facility] CBC WITH DIFFERENTIAL (07/01/2019 12:37 AM CDT) WBC 16.46 (H) 4.30 - 11.10 [facility] 10*3/L SERVICES RBC 2.65 (L) 3.93 - 5.25 [facility] 10*6/L SERVICES HGB 6.4 (L) 11.6 - 15.0 [facility] g/dL SERVICES HCT 20.6 (L) 35.7 - 45.2 % [facility] MCV 77.7 (L) 80.6 - 95.5 fL [facility] MCH 24.2 (L) 25.9 - 32.8 pg [facility] MCHC 31.1 (L) 31.6 - 35.1 [facility] g/dL SERVICES RDW-SD 45.8 39.0 - 49.9 fL [facility] SERVICES RDW-CV 16.1 (H) 12.0 - 15.5 % [facility] PLT 204 166 - 358 [facility] 10*3/L SERVICES MPV 11.0 9.5 - 12.9 fL [facility] SERVICES NRBC/100 WBC 0.0 0.0 - 10.0 /100 [facility] WBCs SERVICES NRBC x10^3 <0.01 10*3/L [facility] SERVICES GRAN MAT (NEUT) % 86.6 % [facility] IMM GRAN % 0.40 % [facility] LYMPH % 7.0 % [facility] MONO % 5.8 % [facility] EOS % 0.1 % [facility] BASO % 0.1 % [facility] GRAN MAT x10^3(ANC) 14.25 (H) 1.88 - 7.09 [facility] 10*3/uL SERVICES IMM GRAN x10^3 0.06 0.00 - 0.06 [facility] 10*3/uL SERVICES LYMPH x10^3 1.16 (L) 1.32 - 3.29 [facility] 10*3/uL SERVICES MONO x10^3 0.96 (H) 0.33 - 0.92 [facility] 10*3/uL SERVICES EOS x10^3 <0.03 (L) 0.03 - 0.39 [facility] 10*3/uL SERVICES BASO x10^3 <0.03 0.01 - 0.07 [facility] 10*3/uL SERVICES Specimen Blood - VENOUS Performing Organization Address City/State/Zipcode Phone Number [facility] CLIA: [id number], [address] [place] [address] [facility] ARTERIAL CORD GAS (06/30/2019 8:30 PM CDT) BASE EXCESS, CORD -3.1 mEq/L [facility] AC PH, CORD (BEAKER) 7.29 7.18 - 7.38 [facility] PC02, CORD 51 32 - 66 mmHg [facility] PO2, CORD 24 10 - 30 mmHg [facility] BICARBONATE, CORD 24 17 - 27 mEq/L [facility] Specimen Blood - CORD Performing Organization Address City/State/Zipcode Phone Number [facility] CLIA: [id number], [address] [place] [address] [facility] VENOUS CORD GAS (06/30/2019 8:30 PM CDT) VENOUS BASE EXCESS, -2.4 mEq/L [facility] CORD SERVICES VENOUS PH, CORD 7.34 7.25 - 7.45 [facility] VENOUS PC02, CORD 44 27 - 49 mmHg [facility] VENOUS PO2, CORD 45 (H) 17 - 41 mmHg [facility] VENOUS BICARBONATE, 23 12 - 29 mEq/L [facility] CORD SERVICES Specimen Blood - CORD Performing Organization Address City/[facility]/Zipcode Phone Number [facility] CLIA: [id number], [address] [place] [phone] [facility] CBC WITH DIFFERENTIAL (06/29/2019 7:00 PM CDT) WBC 8.42 4.30 - 11.10 [facility] 10*3/L SERVICES RBC 3.87 (L) 3.93 - 5.25 [facility] 10*6/L SERVICES HGB 9.4 (L) 11.6 - 15.0 [facility] g/dL SERVICES HCT 29.9 (L) 35.7 - 45.2 % [facility] MCV 77.3 (L) 80.6 - 95.5 fL [facility] MCH 24.3 (L) 25.9 - 32.8 pg [facility] MCHC 31.4 (L) 31.6 - 35.1 [facility] g/dL SERVICES RDW-SD 43.0 39.0 - 49.9 fL [facility] SERVICES RDW-CV 15.8 (H) 12.0 - 15.5 % [facility] SERVICES PLT 236 166 - 358 [facility] 10*3/L SERVICES MPV 11.0 9.5 - 12.9 fL [facility] SERVICES NRBC/100 WBC 0.4 0.0 - 10.0 /100 [facility] WBCs SERVICES NRBC x10^3 0.03 10*3/L [facility] GRAN MAT (NEUT) % 72.7 % [facility] IMM GRAN % 0.50 % [facility] LYMPH % 18.1 % [facility] MONO % 7.5 % [facility] EOS % 1.0 % [facility] BASO % 0.2 % [facility] GRAN MAT x10^3(ANC) 6.13 1.88 - 7.09 [facility] 10*3/uL SERVICES IMM GRAN x10^3 0.04 0.00 - 0.06 [facility] 10*3/uL SERVICES LYMPH x10^3 1.52 1.32 - 3.29 [facility] 10*3/uL SERVICES MONO x10^3 0.63 0.33 - 0.92 [facility] 10*3/uL SERVICES EOS x10^3 0.08 0.03 - 0.39 [facility] 10*3/uL SERVICES BASO x10^3 <0.03 0.01 - 0.07 [facility] 10*3/uL SERVICES Specimen Blood - ARM, RIGHT Performing Organization Address [facility] Phone Number [facility] CLIA: [id number], [address] [place] [address] [facility] GALV ONLY - SYPHILIS IGG/IGM (06/29/2019 7:00 PM CDT) Syphilis IgG/IgM Non-reactive Non-reactive [facility] Specimen Blood - VENOUS Narrative Performed At Non-reactive - No serologic evidence of T. pallidum [facility] infection. Cannot exclude incubating or early syphilis. Submit a second specimen in 2-4 weeks if syphilis is clinically suspected. Equivocal - Further testing to follow. Reactive - Further testing to follow. Performing Organization Address City/[facility] Servicescode Phone Number [facility] CLIA: [id number], [address] [place] [phone] [facility] Hepatitis B Surface Antigen (06/29/2019 7:00 PM CDT) HBsAg HEPATITIS B Negative [facility] SURFACE ANTIGEN SERVICES NEGATIVE HBsAg 0.06 [facility] Semi-Quantitative SERVICES Specimen Blood - ARM, RIGHT Performing Organization Address [facility]/Zipcode Phone Number [facility] CLIA: [id number], [address] [place] [address] [phone] [facility] Urinalysis (06/29/2019 7:00 PM CDT) APPEARANCE Clear Clear [facility] COLOR Straw (A) Yellow [facility] PH 7.0 4.8 - 8.0 [facility] SP GRAVITY 1.006 1.003 - 1.030 [facility] GLU U QUAL Normal Normal [facility] BLOOD Negative Negative [facility] KETONES Negative Negative [facility] PROTEIN Negative Negative [facility] UROBILIN Normal Normal [facility] BILIRUBIN Negative Negative [facility] NITRITE Negative Negative [facility] LEUK HEATH Negative Negative [facility] RBC/HPF 1 0 - 3 HPF [facility] WBC/HPF 1 0 - 5 HPF [facility] BACTERIA Negative Negative [facility] SQ EPITH 3 (H) <=2 HPF [facility] TRANS EPI 1 <=1 HPF [facility] Specimen Urine - URINE, CLEAN CATCH Performing Organization Address [facility] Phone Number [facility] CLIA: [id number], [address] [place] [address] [facility] Lactate Dehydrogenase (06/29/2019 7:00 PM CDT) LDH 453 300 - 600 U/L [facility] SERVICES Specimen Blood - ARM, RIGHT Performing Organization Address [facility] Number [facility] CLIA: [id number], [address] [place] [address] [facility] Alanine Amino Transferase (SGPT) (06/29/2019 7:00 PM CDT) ALT(SGPT) 15 9 - 51 U/L [facility] Specimen Blood - ARM, RIGHT Performing Organization Address [facility] Phone Number [facility] CLIA: [id number], [address] [place] [address] [phone] [facility] SGOT (Asparate Amino Transfer) (06/29/2019 7:00 PM CDT) AST(SGOT) 25 13 - 40 U/L [facility] Specimen Blood - ARM, RIGHT Performing Organization Address [facility] Phone Number [facility] CLIA: [id number], [address] [facility] [place] [address] [facility] Serum Creatinine (06/29/2019 7:00 PM CDT) CREATININE 0.48 (L) 0.50 - 1.04 [facility] mg/dL SERVICES eGFR Calculation 166.6 mL/min/1.73m2 [facility] (Non- SERVICES Bangladeshi) eGFR Calculation 201.9 mL/min/1.73m2 [facility] () SERVICES Specimen Blood - ARM, RIGHT Narrative Performed At Association of Glomerular Filtration Rate (GFR) and Staging [facility] SERVICES of Kidney Disease* + + + + | GFR (mL/min/1.73 m2)| With Kidney Damage|Without Kidney Damage + + + + |>90|Stage one| Normal + + + + |60-89|Stage two| Decreased GFR + + + + |30-59|Stage three| Stage three + + + + |15-29|Stage four | Stage four + + + + |<15 (or dialysis)|Stage five | Stage five + + + + *Each stage assumes the associated GFR level has been in effect for at least three months.Stages 1 to 5, with or without kidney disease, indicate chronic kidney disease. Notes: Determination of stages one and two (with eGFR >59mL/min/1.73 m2) requires estimation of kidney damage for at least three months as defined by structural or functional abnormalities of the kidney, manifested by either: Pathological abnormalities or Markers of kidney damage (including abnormalities in the composition of the blood or urine or abnormalities in imaging tests). Performing Organization Address [facility] Services[facility] Phone Number [facility] CLIA: [id number], [address] [place], [place] [address] [phone] [facility] Protein CREAT Ratio Urine Random (06/29/2019 7:00 PM CDT) T. PROT U 18 mg/dL [facility] CREAT U 34.2 mg/dL [facility] Protein/Creatinine 0.5 0.0 - 2.0 [facility] Ratio Urine Specimen Urine - URINE, CLEAN CATCH Performing Organization Address [facility] Services[facility] Phone Number [facility] CLIA: [id number], [address] [place], [place] [id number] [phone] [facility] Uric Acid Serum (06/29/2019 7:00 PM CDT) URIC ACID 5.5 2.9 - 6.0 mg/dL [facility] Specimen Blood - ARM, RIGHT Performing Organization Address City/State/Zipcode Phone Number [facility] CLIA: [id number], [address] [place] [address] [phone] [facility] Type and Screen - ONCE GALLITO (06/29/2019 6:36 PM CDT) ABO & RH B POSITIVE LAB Comment: Performed at [facility] Laboratory Services - [facility] Blood [place] [address] Toll Free: [phone] CLIA No. [id number] IAT Negative LAB Comment: Performed at [facility] Laboratory Services - [facility] Blood [place] [address] Toll Free: [phone] CLIA No. [id number] Specimen Blood - VENOUS Performing Organization Address City/State/Zipcode Phone Number [facility] LAB documented in this encounter Visit Diagnoses Diagnosis S/P section - Primary Other postprocedural status Abnormal maternal glucose tolerance, antepartum BMI 31.0-31.9,adult Body Mass Index 31.0-31.9, adult Obesity affecting Late care affecting in third trimester High-risk in third trimester Chlamydia infection affecting in third trimester 38 weeks gestation of state, incidental Obesity (BMI 30-39.9) Obesity, unspecified documented in this encounter Administered Medications Medication Order MAR Action Action Date Dose Rate Site acetaminophen (TYLENOL) tablet Given 07/02/2019 10:57 PM CDT 650 mg 650 mg 650 mg, Oral, Q6HPRN, Starting 07/02/19 at 2254, Until Discontinued, Routine, Temp > 38.5 C docusate calcium (SURFAK) capsule 240 mg Given 07/04/2019 3:58 AM CDT 240 mg 240 mg, Oral, QDAILYPRN, Starting 07/01/19 at 1022, Until Discontinued, Routine, Constipation Given 07/02/2019 2:09 AM CDT 240 mg magnesium hydroxide (MILK OF MAGNESIA) 400 Given 07/02/2019 2:09 AM CDT 30 mL mg/5 mL suspension 30 mL 30 mL, Oral, QDAILYPRN, Starting 07/01/19 at 1022, Until Discontinued, Routine, Constipation morpHINE injection 2 mg 2 mg, Slow IV Push, Q3HPRN, Starting 07/02/19 at 1628, Until Discontinued, Routine, Breakthrough Pain (scale 4-10) naloxone (NARCAN) injection 0.1 mg 0.1 mg, Slow IV Push, SEE-INSTRUCTIONS, Starting Wed06/30/19 at 2140, Until Discontinued, Routine simethicone (GAS RELIEF) chewable tablet 160 Given 07/04/2019 3:58 AM CDT 160 mg mg 160 mg, Oral, PC+HSPRN, Starting 07/01/19 at 1022, Until Discontinued, Routine, Gas Given 07/02/2019 2:09 AM CDT 160 mg Given 07/01/2019 7:34 PM CDT 160 mg traMADol (ULTRAM) tablet 50 mg Given 07/04/2019 4:57 PM CDT 50 mg 50 mg, Oral, Q6HPRN, Starting [place] 07/02/19 at 1628, Until Discontinued, Routine, Pain (scale 4-6), Pain (scale 7-10) Given 07/03/2019 11:47 AM CDT 50 mg Given 07/03/2019 6:30 AM CDT 50 mg Medication Order MAR Action Action Date Dose Rate Site acetaminophen (TYLENOL) tablet Given 07/01/2019 5:28 AM CDT 650 mg 650 mg 650 mg, Oral, ONCE, 1 dose, 07/01/19 at 0530, Routine acetaminophen (TYLENOL) tablet 650 mg Given 07/01/2019 5:10 PM CDT 650 mg 650 mg, Oral, ONCE, 1 dose, 07/01/19 at 1700, Routine acetaminophen ADULT (OFIRMEV) injection Given 06/30/2019 10:02 PM CDT 1,000 mg 1,000 mg 1,000 mg, IV Infusion, Administer over 15 Minutes, ONCE, 1 dose, Wed06/30/19 at 2200, Routine, Indication: Perioperative Patient ampicillin (POLYCILLIN-N) 2,000 mg in NaCl Given 07/01/2019 6:33 AM CDT 2, 000 mg 0.9% (NS) 100 mL MINI-BAG 2,000 mg (2 g), IV Piggyback, ONCE, 1 dose, 07/01/19 at 0615, 100 mL, Reason for Anti-Infective: Documented Infection, Documented Infection Site: Pelvic, Duration of Therapy: 7 days ampicillin (POLYCILLIN-N) 2,000 mg in NaCl Given 07/02/2019 1:10 PM CDT 2, 000 mg 0.9% (NS) 100 mL MINI-BAG 2,000 mg (2 g), IV Piggyback, Q6H ABX, 4 doses, First dose on 07/01/19 at 1600, Last dose on 07/02/19 at 1000, 100 mL, Reason for Anti-Infective: Documented Infection, Documented Infection Site: Pelvic, Duration of Therapy: Other (see Comments) Given 07/02/2019 5:22 AM CDT 2,000 mg Given 07/01/2019 11:03 PM CDT 2,000 mg tkjwiywlps-mynevnciqbrrk-vmdp (ESGIC) Given 06/29/2019 6:50 PM CDT 2 tablets 50-325-40 mg tablet 2 tablet 2 tablet, Oral, ONCE, 1 dose, Talya 06/29/19 at 1615, Routine ceFAZolin in dextrose (iso-os) (ANCEF) 2 Given 06/30/2019 8:15 PM CDT 2 g gram/100 mL Piggyback 2 g 2 g (2,000 mg), IV Piggyback, O.R. 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, Duration of therapy: within 24 hours of surgery [id number] IV infusion 1,000 mL New Bag 06/29/2019 7:00 PM CDT 1,000 mL 125 mL/hr at 125 mL/hr, IV Infusion, CONTINUOUS, Starting Talya 06/29/19 at 1800, Until 07/01/19 at 1023, Routine diphenhydrAMINE (BENADRYL) injection 12.5 Given 07/01/2019 2:45 AM CDT 12.5 mg mg 12.5 mg, Slow IV Push, ONCE, 1 dose, 07/01/19 at 0345, Routine diphenoxylate-atropine (LOMOTIL) 2.5-0.025 Given 06/30/2019 10:19 PM CDT 1 tablet mg per tablet 1 tablet 1 tablet, Oral, ONCE, 1 dose, Wed06/30/19 at 2215, Routine gentamicin 350 mg in NaCl 0.9% (NS) 250 mL Given 07/01/2019 8:49 AM CDT 350 mg 350 mg, IV Piggyback, ONCE, 1 dose, 07/01/19 at 0630, GALLITO gentamicin 350 mg in NaCl 0.9% (NS) 250 mL Given 07/02/2019 9:03 AM CDT 350 mg 350 mg, IV Piggyback, ONCE, 1 dose, 07/02/19 at 0900, GALLITO HYDROcodone-acetaminophen (NORCO 5) 5-325 Given 07/01/2019 11:02 AM CDT 1 tablet mg tablet 1 tablet 1 tablet, Oral, Q6HPRN, Starting 07/01/19 at 1022, Until Wed07/02/19 at 1629, Routine, Pain (scale 4-6), If uncontrolled by Ibuprofen HYDROcodone-acetaminophen (NORCO 5) 5-325 Given 07/02/2019 8:27 AM CDT 2 tablets mg tablet 2 tablet 2 tablet, Oral, Q6HPRN, Starting 07/01/19 at 1022, Until 07/02/19 at 1629, Routine, Pain (scale 7-10), If uncontrolled by Ibuprofen Given 07/02/2019 3:16 AM CDT 2 tablets Given 07/01/2019 9:30 PM CDT 2 tablets ibuprofen (IBU) tablet 600 mg Given 07/02/2019 8:27 AM CDT 600 mg 600 mg, Oral, Q6HPRN, Starting 07/01/19 at 1022, Until 07/02/19 at 1629, Routine, Pain (scale 1-3) Given 07/02/2019 2:09 AM CDT 600 mg Given 07/01/2019 8:36 PM CDT 600 mg ketorolac (TORADOL) injection 30 mg Given 07/01/2019 2:57 PM CDT 30 mg 30 mg, Slow IV Push, PRN, 1 dose, Starting Wed06/30/19 at 2149, Until 07/01/19 at 1457, Routine, Pain (scale 7-10), 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, 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 Restricted medication: VADHERA, SULY B lactated ringers IV infusion 500 New Bag 06/30/2019 11:13 AM CDT 500 mL 999 mL/hr mL at 999 mL/hr, 500 mL, IV Infusion, PRN - SEE INSTRUCTIONS, 1 dose, Starting Talya 06/29/19 at 2133, Until Wed06/30/19 at 1113, Routine lactated ringers IV infusion 500 New Bag 07/01/2019 5:35 AM CDT 500 mL 999 mL/hr mL at 999 mL/hr, 500 mL, IV Infusion, ONCE, 1 dose, Wed06/30/19 at 2100, Routine LR 1000 mL + oxytocin 20 Rate Change 06/30/2019 7:30 PM 14 jatinder-units/min 42 mL/hr units IV Solution CDT 2 jatinder-units/min (6 mL/hr), at 6 mL/hr, IV Infusion, CONTINUOUS, Starting Talya 06/29/19 at 1930, Until Wed06/30/19 at 1949, GALLITO Rate Change 06/30/2019 7:00 PM CDT 12 jatinder-units/min 36 mL/hr Rate Change 06/30/2019 6:40 PM CDT 10 jatinder-units/min 30 mL/hr LR 1000 mL + oxytocin 20 units IV New Bag 06/30/2019 10:16 PM CDT 125 mL/ hr Solution at 125 mL/hr, IV Infusion, CONTINUOUS, Starting Wed06/30/19 at 2215, Until 07/01/19 at 1023, GALLITO metroNIDAZOLE (FLAGYL I.V.) Piggyback 500 mg Given 07/01/2019 7:28 AM CDT 500 mg 500 mg, IV Piggyback, ONCE, 1 dose, 07/01/19 at 0615, 100 mL, Reason for Anti-Infective: Documented Infection, Documented Infection Site: Pelvic, Duration of Therapy: 7 days metroNIDAZOLE (FLAGYL I.V.) Piggyback 500 mg Given 07/02/2019 9:02 AM CDT 500 mg 500 mg, IV Piggyback, Q8H ABX, 3 doses, First dose on 07/01/19 at 1600, Last dose on 07/02/19 at 0800, 100 mL, Reason for Anti-Infective: Documented Infection, Documented Infection Site: Pelvic, Duration of Therapy: Other (see Comments) Given 07/02/2019 2:11 AM CDT 500 mg Given 07/01/2019 6:08 PM CDT 500 mg miSOPROStol (CYTOTEC) tablet 1,000 mcg Given 07/02/2019 8:17 AM CDT 1,000 mcg 1,000 mcg, Enteral, ONCE NOW, 1 dose, [place] 07/02/19 at 0815, Routine morpHINE 2 mg/mL LOAD & RESCUE INJECTION SYRG Given 06/30/2019 11:22 PM CDT 4 mg Slow IV Push, Routine nalbuphine (NUBAIN) injection 5 mg Given 06/30/2019 11:20 PM CDT 5 mg 5 mg, Intravenous, PRN, 1 dose, Starting 06/30/19 at 2149, Until Wed06/30/19 at 2320, Routine, Itching, PACU piperacillin-tazobactam (ZOSYN) 3.375 Given 07/04/2019 6:01 AM CDT 3.375 g gram/50 mL Piggyback 3.375 g 3.375 g, IV Piggyback, Q6H ABX, First dose on [place] 07/02/19 at 1745, Until Discontinued, 50 mL, Reason for Anti-Infective: Empiric Therapy for Suspected Infection, Empiric Therapy Site: Pelvic, Duration of therapy: 72 hours Given 07/04/2019 12:30 AM CDT 3.375 g Given 07/03/2019 6:38 PM CDT 3.375 g sodium citrate-citric acid (BICITRA) 500-334 Given 06/30/2019 11:12 AM CDT 30 mL mg/5 mL solution 30 mL 30 mL, Oral, PRE-PROCEDURE ONCE, 1 dose, Starting Talya 06/29/19 at 2133, Until Wed06/30/19 at 1112, Routine, Surgery/Procedure documented in this encounter Insurance Payer Benefit Plan / Subscriber ID Effective Phone Address Type Group Dates [facility] x[facility] 2019-Shaheen SIM Medicaid HEALTH CHOICE - HEALTH CHO[place] nt [id number] MANAGED MEDICAID [place], [place] MEDICAID [phone] documented as of this encounter"
--- OUTSIDE RECORDS SUMMARY | 2019-07-26 22:58 | XMS REPORT | Summary of Care ---
:2000 Author Organization [facility] Address [address] [place] [id number] Care Team Providers Name Role Phone Cate Jesus Primary Care Provider Reason for Visit Reason Comments Wound Check Encounter Details Date Type Department Care Team Description 07/17/2019 Nurse Visit [facility]- Cate Jesus, [facility] [address] [place], [place] [id number] Visit for wound check [place] Visit, [facility] Nurse (Primary Dx) [address] [place] [address] Allergies No Known Allergiesdocumented as of this encounter (statuses as of 07/17/2019) Medications Medication Sig Dispensed Refills Start Date [...] as of this encounter (statuses as of 07/17/2019) Active Problems Problem Noted Date 38 weeks [...] as of this encounter (statuses as of 07/17/2019) Immunizations Name Administration Dates Next Due PPD [...] Sign Reading Time Taken Comments Blood Pressure 127/80 07/17/2019 2:18 PM CDT Pulse 94 07/17/2019 2:18 PM CDT Temperature 37.1 C (98.8 F) 07/17/2019 2:18 PM CDT Respiratory Rate 16 07/17/2019 2:18 PM CDT Oxygen Saturation 99% 07/17/2019 2:18 PM CDT Inhaled Oxygen Concentration - - Weight 78.6 kg (173 lb 3.2 oz) 07/17/2019 2:18 PM CDT Height 162.6 cm (5' 4") 07/17/2019 2:18 PM CDT Body Mass Index 29.73 07/17/2019 2:18 PM CDT documented in this encounter Patient Instructions Patient InstructionsKaleigh Coronel RN - 07/17/2019 2:00 PM CDT Despus de mikel cesrea La recuperacin total de mikel cesrea puede llevar tiempo. Es muy importante que se cuide, tanto por usted misma kulwinder por pham beb recin nacido. Cuidado de la herida Consejos para cuidar de pham incisin: Probablemente pueda ducharse y secar la herida con golpecitos de toalla. Vigile que la herida no tenga muestras de infeccin, kulwinder enrojecimiento o supuracin. Para lograr mayor movilidad, ponga mikel almohada contra la herida al levantarse cuando est acostada o sentada, y cuando tenga que toser o rerse. Evite levantar cosas pesadas. No levante nada ms pesado que pham beb hasta que pham proveedor de atencin mdica le indique lo contrario. Cundo debe llamar a pham proveedor de atencin mdica: Comunquese con pham proveedor de atencin mdica si tiene: Fiebre de 100.4 F (38.0 C) o ms edwige Enrojecimiento, dolor o supuracin en la herida que empeora Sangrado vaginal que requiere el uso de mikel toalla sanitaria cada hora o co gulos de isauro grandes Dolor raymond en pham abdomen No rivera evacuado en la primera semana despus de nacido el beb Secrecin vaginal maloliente Phyllis hinchada, derrick y adolorida en mikel pierna Ardor al orinar o isauro en la orina Salpullido o urticaria Zonas sensibles, rosa y doloridas en los senos (pueden estar acompaadas de sntomas kulwinder de gripe) Sentimientos de ansiedad, pnico y depresin o dificultad para relacionarse afectivamente con pham beb Date Last Reviewed: 05/19/201319990338-2905 [employer]. [address] [place] [id number]. Todos los derechos reservados. Esta informacin no pretende sustituir la atencin mdica profesional. Slo pham mdico puede diagnosticar y tratar un problema de taylor. Qu es la depresin posparto? Usted acaba de tener un beb. A pesar de que sabe que debera sentirse emocionada y chaudhry, lo que siente son ganas de llorar sin motivo y tiene dificultades para realizar anila tareas diarias. Usted pasa la mayor parte del tiempo natividad, cansada y desesperanzada, y hasta podra sentirse avergonzada oculpable. Joyce lo que le est sucediendo no es culpa suya; y puede sentirse mejor. Hable con pham proveedor de atencin mdica para que la ayude. Qu es la depresin? La depresin es un trastorno del guzman que afecta pham manera de pensar y de sentir. El sntoma ms frecuente es un sentimiento de honda tristeza. Tambi n podra causarle la sensacin de que ya nopuede lidiar con la carley. Otros s ntomas incluyen: Aumentar o perder mucho peso Dormir en exceso o demasiado poco Estar cansada todo el tiempo Sentirse inquieta Llorar mucho Tener muy poco o mucho apetito Retraerse de los amigos y la promise Tener petey de raissa, molestias y petey o problemas estomacales que no se alivian Tener miedo de querer herir al beb No tener inters por el beb Sentirse intil o culpable No encontrar placer en las cosas que ricky gustarle hacer Dificultades para pensar con claridad o fernando decisiones Pensar sobre la muerte o el suicidio La depresin despus del parto Garcia vez sienta cansancio y ganas de llorar clover despus de katrin a brittney. Esta etapa melanclica, denominada "baby blues", es normal y generalmente pasa despus de mikel a dos semanas. Sin embargo, la depresin postparto (que significa despus del parto) es mucho ms persistente e intensa que el "baby blues". Puede hacerla sentir natividad y desesperanzada, o temerosa de que algo arcelia le vaya a pasar al beb. Algunas mujeres hasta llegan a poner en mary el que puedan ser buenas madres. Cules son las causas de la depresin posparto? La causa exacta de la depresin postparto se desconoce. Se prema que los cambios de la estructura o la qumica del cerebro tienen mucho que mara con la depresin. Puede deberse a los cambios hormonales que suceden zaynab y despu s del parto. Tambin puede deberse al cansancio que le causan las exigencias del beb y el proceso de adaptacin a pham maternidad. Todos estos factores podran deprimirla. En algunos casos, existe mikel predisposicin gentica a brionna tipo de depresin. La depresin puede tratarse Lo lane es que hay muchas maneras de tratar la depresin postparto. D el primer paso para sentirse mejor hablando con pham proveedor de atencin mdica. Cundo debe llamar a pham proveedor de atencin mdica Llame a pham proveedor de atencin mdica si usted: Llora sin un motivo sergio. Tiene problemas para dormir, comer o fernando decisiones. Mary si puede manejar el cuidado de un beb. Tiene sentimientos jasmyn de tristeza, ansiedad o desesperacin que le impiden hacer anila tareasdiarias. Recursos [place] [employer] of Mental [email or web address] National [place] on Mental [email or web address] Mental Health [email or web address] National Suicide [phone] (800-SUICIDE) Date Last Reviewed: 10/02/201719993222-9920 [employer]. [address] [place] [address]. Todos los derechos reservados. Esta informacin no pretende sustituir la atencin mdica profesional. Slo pham mdico puede diagnosticar y tratar un problema de taylor. Anemia Mikel persona tiene anemia cuando pham cuerpo no posee suficientes glbulos rojos sanos. Los glbulos rojos trav parte de la isauro y se encargan de transportar el oxgeno por todo el cuerpo. Mikel protena llamada hemoglobina les permite a los glbulos rojos absorber y liberar el oxgeno. Si no tiene suficientes glbulos rojos o hemoglobina, el cuerpo no recibe el oxgeno necesario y pueden aparecer sntomas de anemia. Sntomas de la anemia Algunas personas con anemia no tienen sntomas, joyce la mayora tiene s ntomas que van de leves agraves. Estos pueden incluir: Cansancio (fatiga) Debilidad Pal[place] Falta de aire Mareos o desmayos Latidos acelerados (taquicardia) Problemas para realizar las actividades que se llevan a cabo normalmente Ictericia (ojos, piel o boca amarillentos; orina oscura) Causas de la anemia La anemia puede ocurrir cuando el cuerpo: Pierde demasiada isauro No produce suficientes glbulos rojos Elimina los glbulos rojos ms rpido de lo que los produce No produce mikel cantidad normal de hemoglobina en los glbulos rojos Dichos problemas pueden ocurrir por varios motivos; por ejemplo: Mikel afeccin de nacimiento (congnita o hereditaria), kulwinder la anemia de c lulas falciformes o la talasemia. El sangrado intenso por alguna razn, ya sea lesin, ciruga, parto o hasta perodos menstruales intensos. La falta de determinados nutrientes kulwinder el emily, el folato o la vitamina B12, lo cual puede ocurrir debido a mikel fanny alimentacin. Mikel afeccin kulwinder la enfermedad celaca o la enfermedad de Crohn tambin puede causar mikel fanny absorcin de los nutrientes. Algunas condiciones crnicas kulwinder la diabetes, la artritis o la enfermedad renal. Ciertas infecciones crnicas kulwinder la tuberculosis o el VIH. La exposicin a ciertos medicamentos, kulwinder los que se usan para la quimioterapia. Existen diferentes tipos de anemia. Pham mdico puede brindarle ms informacin sobre el tipo deanemia que usted tiene y anila causas. Diagnstico de la anemia Para diagnosticar la anemia, se realizan anlisis de isauro que pueden incluir: Recuento sanguneo completo (CBC, por anila siglas en ingls): Esta prueba mide las cantidades delos diferentes tipos de clulas sanguneas. Extensin de isauro: Prueba que permite evaluar el tamao y la forma de las clulas sanguneas. Para realizar el anlisis, se debe observar mikel gota de siauro con un microscopio. Se utiliza un colorante a fin de lograr que las c lulas sanguneas se vean mejor. Exmenes de emily: Miden la cantidad de emily que hay en la isauro. El emily es necesario para producir hemoglobina en los RBC. Exmenes de vitamina B12 y folato. Estos exmenes comprueban la existencia de algunos de los componentes que ayudan a katrin a los glbulos rojos un tamao y forma normales. Recuento de reticulocitos: Con esta prueba se puede medir la cantidad de nuevos glbulos rojos que produce la mdula sea. Electroforesis de hemoglobina: Esta prueba sirve para descubrir problemas en la hemoglobina de los glbulos rojos. Tratamiento de la anemia Los tratamientos que se utilizan dependen del tipo de anemia, pham causa y la gravedad de los sntomas. Los tratamientos pueden incluir: Cambios en la alimentacin: Consisten en aumentar la cantidad de ciertos nutrientes en la dieta,kulwinder el emily, la vitamina B12 o el folato. Tambin es posible que pham mdico le recete suplementos nutritivos. Medicamentos: Algunos medicamentos se utilizan para tratar la causa de la anemia y otros ayudan acrear nuevos glbulos rojos o a aliviar los sntomas. Si algn medicamento le produce anemia, debe dejar de tomarlo o cambiarlo. Transfusiones de isauro: Reemplazar parte de pham isauro puede aumentar el n tova de glbulos rojos sanos de pham cuerpo. Ciruga: En algunos casos, se puede realizar mikel ciruga para tratar las causas de la anemia. Si dicha ciruga es necesaria, el mdico le explicar el procedimiento y le katrin mikel idea general de los beneficios y riesgos que puede tener para usted. Inquietudes a elenita plazo Algunas personas con ciertos tipos de anemia pueden recuperarse completamente mikel vez terminado el tratamiento, joyce otros tipos de anemia (en especial las que son de nacimiento) necesitan ser tratadasdurante toda la carley. Pham mdico le puede brindar ms informmica al respecto. Date Last Reviewed: 03/18/201519993216-9201 [employer]. [address] [place] [address]. Todos los derechos reservados. Esta informacin no pretende sustituir la atencin mdica profesional. Slo pham mdico puede diagnosticar y tratar un problema de taylor. documented in this encounter Progress Notes Kaleigh Coronel RN - 07/17/2019 2:00 PM CDTPatient in clinic for steri strip removal Delivered 06/30/2019 via Pt voiding and stooling without difficulties, not constipated . Pt eating well and drinking water daily. She is Bottle Feeding) care no concerns voiced has help at home. She denies depression/suicidal/homocial ideation, Denies any domestic violence. LT incision well approximated and intact. No ss of infection, induration or wound opening noted. C/S inc care reviewed and warning S/S given Patient with hx of anemia and PPH, advised patient to continue iron, vitamin c, colace, and prenatalvitamin. ER warnings discussed, she voiced understanding and agrees with plan. KALEIGH CORONEL RN 07/17/2019 2:24 PM documented in this encounter Plan of Treatment Date Type Specialty Care Team Description 07/26/2019 Routine Visit [facility] Cate Jesus, OCCUPATIONAL THERAPIST'S ASSISTANT [address] [place] [address] [phone] Health Maintenance Due Date Last Done Comments MENINGOCOCCAL B VACCINES (1 of 2009 2 - Risk Bexsero 2-dose series) HPV VACCINES (1 - Female 2014 3-dose series) INFLUENZA VACCINE (#1) 2019 CHLAMYDIA SCREENING 06/19/2020 06/19/2019, 05/19/2019 DTaP,Tdap,and Td Vaccines (2 - 05/19/2029 05/19/2019 Td) MENINGOCOCCAL VACCINE Aged Out No longer eligible based on patient's age to complete this topic PNEUMOCOCCAL 0-64 YEARS Aged Out No longer eligible based COMBINED SERIES on patient's age to complete this topic documented as of this encounter Results Not on filedocumented in this encounter Visit Diagnoses Diagnosis Visit for wound check - Primary Encounter for other specified aftercare documented in this encounter Insurance Payer Benefit Plan / Subscriber ID Effective Phone Address Type Group [facility] xxxxxxxxx 2019-Shaheen SIM Medicaid HEALTH CHOICE - HEALTH CHOICE [id number] MANAGED MEDICAID [place], [place] MEDICAID [phone] documented as of this encounter
--- OUTSIDE RECORDS SUMMARY | 2019-07-26 22:58 | XMS REPORT | Summary of Care ---
:2000 Author Organization [facility] Address [address] [place] [id number] Care Team Providers Name Role Phone Cate Jesus Primary Care Provider Reason for Visit Reason Comments Care Encounter Details Date Type Department Care Team Description 07[facility]2019 [facility] care and examination (Primary Dx); Visit ERNIE Lee anemia; [address] Other immediate hemorrhage; [place], [place] Ethan A Abscess of left buttock [id number] [place], [place] [phone] [id number] Allergies No Known Allergiesdocumented as of this encounter (statuses as of 07/26/2019) Medications Medication Sig Dispensed Refills Start Date End Date Status vitamin Take 1 tablet by 100 tablet 3 07/04/2019 Active w/FA mouth daily. tabletIndications: S/P section docusate calcium 240 Take 1 [...] 4-6) (Pain). Take with food or milk. cephALEXin (KEFLEX) Take 1 capsule by 20 capsule 0 07/26/2019 08/05/2019 Active 500 mg mouth 2 (two) capsuleIndications: times daily for Abscess of left 10 days. buttock documented as of this encounter (statuses as of 07/26/2019) Active Problems Problem Noted Date Other immediate hemorrhage 07/26/2019 anemia 07/26/2019 Obesity (BMI 30-39.9) 06/29/2019 History of chlamydia 05/22/2019 Screening-pulmonary TB 05/19/2019 Genital condyloma, female 05/19/2019 documented as of this encounter (statuses as of 07/26/2019) Resolved Problems Problem Noted Date Resolved Date 38 weeks gestation of 06/29/2019 07/26/2019 Decreased movements in third trimester, single or 06/22/2019 07/26/2019 unspecified fetus Abnormal maternal glucose tolerance, antepartum 05/22/2019 07/26/2019 BMI 31.0-31.9,adult 05/19/2019 07/26/2019 Obesity affecting 05/19/2019 07/26/2019 Late care affecting in third trimester 05/19/20192018 High-risk in third trimester 05/19/2019 07/26/2019 documented as of this encounter (statuses as of 07/26/2019) Immunizations Name Administration Dates Next Due PPD [...] more drinks on one occasion? Not asked Sex Assigned at Date Recorded Not on file Job Start Date Occupation Industry Not on file Not on file Not on file Travel History Travel Start Travel End No recent travel history available. documented as of this encounter Last Filed Vital Signs Vital Sign Reading Time Taken Comments Blood Pressure 126/71 07/26/2019 2:37 PM CDT Pulse 89 07/26/2019 2:37 PM CDT Temperature 36.7 C (98.1 F) 07/26/2019 2:37 PM CDT Respiratory Rate 18 07/26/2019 2:37 PM CDT Oxygen Saturation - - Inhaled Oxygen Concentration - - Weight 78.9 kg (174 lb) 07/26/2019 2:37 PM CDT Height 162.6 cm (5' 4") 07/26/2019 2:37 PM CDT Body Mass Index 29.87 07/26/2019 2:37 PM CDT documented in this encounter Progress Notes Cate Jesus, SAMPLE BUILDER - 07/26/2019 10:15 AM CDT Chief complaint: Chief Complaint Patient presents with Care Mya Blanchard is a 18 year old, , /White female. Patient's last menstrual period was 10/02/2018 (exact date). Patient presents for her visit. She is 3 week(s) status-post a c- section. Incision is healing as expected.. Since discharge, lochia has decreased. Lochia described as normal and physiologic. She is not . She reports no complaints in the bilateral breast(s). Patient denies pain. Patient has not attempted self treatment. She reports that she does not currently engage in sexual activity but has had partners who are Male. She reports using the following method of birthcontrol/protection: None. Desires depo or nexplanon She complains of a "pimple" on her lower back by her buttocks. She reports she has had this problem before and her boyfriend helped "drain it". She reports it started a few days ago. Has not tried any self treatment. Perineal repair: N/A Infants course complicated? no The patients course was without complication. The patients hospital course was withcomplication. Post- hemoglobin before leaving hospital: HGB Date Value Ref Range Status 07/02/2019 8.1 (L) 11.6 - 15.0 g/* Final complications: hemorrhage, hypertension and infection Patient lives with with baby and her cousin. OB History T0 L0 SAB0 TAB0 Ectopic0 Multiple0 Live Births0 Name of Baby 1: Not recorded Date: Not recorded GA: Not recorded Delivery: Not recorded Apgar1: Not recorded Apgar5: Not recorded Living: Not recorded Depression Scale: I have been able to laugh and see the funny side of things: As much as I always could I have looked forward with enjoyment to things: As much as I ever did I have blamed myself unnecessarily when things went wrong: No, never I have been anxious or worried for no good reason: No, not at all I have felt scared or panicky for no good reason: No, not at all Things have been getting on top of me: No, I have been coping as well as ever I have been so unhappy that I have had difficulty sleeping: Not at all I have felt sad or miserable: No, not at all I have been so unhappy that I have been crying: No, never The thought of harming myself has occurred to me: Never Total: 0 Immunization History Administered Date(s) Administered PPD (TB) 05/19/2019 TDAP (ADACEL) VACCINE 05/19/2019 Pended Date(s) Pended Rho (d) Immune Globulin 07/01/2019 Histories OB History Para Term AB Living 1 SAB TAB Ectopic Multiple Live Births # Outcome Date GA Lbr Patricio/2nd Weight Sex Delivery Anes PTL Lv 1 Current Past Medical History: Diagnosis Date Abnormal maternal glucose tolerance, antepartum 05/22/2019 Chlamydia infection affecting in third trimester 05/22/2019 Genital condyloma, female 05/19/2019 anemia 07/26/2019 Family History Problem Relation Age of Onset [...] MGMo Alive MGFa Alive PGMo Alive PGFa Past Surgical History: Procedure Laterality Date SECTION N/A 06/30/2019 Surgeon: Merlene Hernandes MD; Location: Labor and Delivery - [place] Social History Socioeconomic History Marital status: Spouse [...] file Gets together: Not on file Attends hindu service: Not on file Active member of [...] Concern Not on file Social History Narrative Scientology preference is Protestant. Patient lives with cousin. Patient has dogs. Social History Substance and Sexual Activity Sexual Activity Not Currently Partners: Male control/protection: None Comment: last sexual intercourse 02/16/2019 Labs No new labs, I have reviewed the patient's labs. and Admission on 06/29/2019, Discharged on 07/05/2019 No results displayed because visit has over 200 results. Routine Visit on 06/26/2019 Component Date Value POCT PH U 06/26/2019 . POCT U LEUK EST 06/26/2019 . POCT U NIT 06/26/2019 . POCT U PROT 06/26/2019 neg POCT U GLU 06/26/2019 neg POCT U KETONE 06/26/2019 . POCT U BLD 06/26/2019 . Radiology No new radiology. Allergies Mya has No Known Allergies. Medications Mya has a current medication list which includes the following prescription( s): cephalexin, docusate calcium, ferrous sulfate, vitamin w/fa, and ibuprofen. Review of Systems Constitutional: Negative for appetite change, fatigue and fever. Eyes: Negative for visual disturbance. Respiratory: Negative. Cardiovascular: Negative for palpitations and leg swelling. Gastrointestinal: Negative for abdominal pain, constipation, diarrhea, nausea and vomiting. Genitourinary: Negative. Negative for dysuria, vaginal bleeding, vaginal discharge and pelvic pain. Musculoskeletal: Negative. Skin: Negative for rash. "pimple" on lower back Neurological: Negative for dizziness, light-headedness and headaches. Psychiatric/Behavioral: Negative. BP 126/71 (BP Location: Right arm, Patient Position: Sitting, BP CUFF SIZE: Adult Medium) | Pulse 89 | Temp 36.7 C (98.1 F) (Oral) | Resp 18 | Ht 5 ' 4" (1.626 m) | Wt 174 lb (78.9 kg) | LMP 10/02/2018 (Exact Date) | ? Unknown | BMI 29.87 kg/m Pregravid BMI: 27.6 Physical Exam Vitals reviewed. Constitutional: She is oriented to person, place, and time. She appears well- developed and well-nourished. Cardiovascular: No peripheral edema present. Pulmonary/Chest: Normal inspiratory effort. Abdominal: Abdomen is soft. Neuro/Psychiatric: She has a normal mood and affect. She is oriented to person, place, and time. Skin: Skin normal. Well healing pfannenstiel incision, no s/s infection or dehiscence. Abscess noted to upper left buttocks near gluteal crease. Indurated approximately 1 inch, painful totouch, erythemic. No discernable head to express , non draining. Vagina: Scant blood Uterus: Normal involution Assessment/Plan 1. care and examination Coping well, denies PP depression Desires depo or nexplanon for contraception, abstinence instructed until next visit 2. anemia Continue PNV and iron, recheck CBC next visit 3. Other immediate hemorrhage 4. Abscess of left buttock Will start on antibiotics Encouraged QID sitz bath/warm compress If no improvement after antibiotic therapy, encouraged to seek care for possible I&D - cephALEXin (KEFLEX) 500 mg capsule; Take 1 capsule by mouth 2 (two) times daily for 10 days. Dispense: 20 capsule; Refill: 0 Return to clinic in 3 weeks. Discussed treatment options. Medications as ordered. Reviewed patient instructions and provided printed copy. This visit did not involve counseling and coordination that comprised more than 50% of the visit time. Benita Smith LVN - 07/26/2019 10:15 AM CDTPt in clinic today for 3 wk pp visit. 1) Delivery method . 2) Patient delivered on 06/30/2019 at [facility]. 3) Patient is currently bottle feeding. 4) Desired BCM:nexplanon 5) Patient denies pp depression Patient reports light lochia, brown in color, denies any issues. documented in this encounter Plan of Treatment Date Type Specialty Care Team Description 08/16/2019 Office Visit OB Satellites Cate Jesus, SAMPLE BUILDER [address] [place] [address] [phone] Health Maintenance Due Date Last Done Comments [...] filedocumented in this encounter Visit Diagnoses Diagnosis care and examination - Primary Routine follow-up anemia Anemia, Other immediate hemorrhage Abscess of left buttock Cellulitis and abscess of buttock documented in this encounter Insurance Payer Benefit Plan / Subscriber ID Effective Phone Address Type Group [facility] xxxxxxxxx 2019-Shaheen SIM Medicaid HEALTH CHOICE - HEALTH CHOICE nt [id number] MANAGED MEDICAID [place], [place] MEDICAID [phone] documented as of this encounter
--- OUTSIDE RECORDS SUMMARY | 2019-07-26 22:58 | XMS REPORT | Summary of Care ---
:[address] [facility] Address [address] [place] [id number] Care Team Providers Name Role Phone Cate Jesus [facility] Primary Care Provider Reason for Visit Reason Comments Talk To Nurse return phone call Encounter Details Date Type Department Care Team Description 07/12/2019 Telephone [facility]- Cate Jesus, Talk To Nurse ( return [facility] phone call) [address] [facility] [address] [place] [address] [phone] Allergies No Known Allergiesdocumented as of this encounter (statuses as of 07/12/2019) Medications Medication Sig Dispensed Refills Start Date [...] as of this encounter (statuses as of 07/12/2019) Active Problems Problem Noted Date 38 weeks [...] as of this encounter (statuses as of 07/12/2019) Immunizations Name Administration Dates Next Due PPD [...] Treatment Date Type Specialty Care Team Description 07/17/2019 Nurse Visit OB Satellites Visit, [facility] Nurse 07/26/2019 Routine Visit OB Satellites Cate Jesus, CEREAL MAKER [address] [place] [address] [phone] Health Maintenance Due Date Last Done Comments [...] Subscriber ID Effective Phone Address Type Group [facility] xxxxxxxxx 2019-Shaheen [address] Medicaid HEALTH CHOICE - HEALTH CHOICE nt [id number] MANAGED MEDICAID [place], [place] MEDICAID [phone] documented as of this encounter
--- OUTSIDE RECORDS SUMMARY | 2019-07-26 22:58 | XMS REPORT | Summary of Care ---
:2000 Author Organization [facility] Address [address] [place] [id number] Care Team Providers Name Role Phone Cate Jesus Primary Care Provider Reason for Visit Reason Comments Care Encounter Details Date Type Department Care Team Description 07/[facility] Jesus care and examination (Primary Dx); Visit ERNIE Lee anemia; [address] Other immediate hemorrhage; [place], [place] Ethan A Abscess of left buttock [address] [place], [place] [phone] [id number] Allergies No Known Allergiesdocumented as of this [...] in this encounter Progress Notes Cate Jesus, SECTION PLOTTER OPERATOR - 07/26/2019 10:15 AM CDT Chief complaint: [...] Hernandes MD; Location: Labor and Delivery - [place] Social History Socioeconomic History Marital status: Spouse [...] file Gets together: Not on file Attends holiness service: Not on file Active member of [...] Concern Not on file Social History Narrative Protestant preference is Spiritism. Patient lives with cousin. Patient has dogs. [...] 08/16/2019 Office Visit OB Satellites Cate Jesus, SECTION PLOTTER OPERATOR [address] [place] [address] [phone] Health Maintenance Due Date Last Done Comments [...] Effective Phone Address Type Group [facility] xxxxxxxxx 2019-Shaheen SIM Medicaid HEALTH CHOICE - HEALTH CHOICE nt [id number] MANAGED MEDICAID [place], [place] MEDICAID [id number] documented as of this encounter
[2019-07-26] MEDS ORDERED: LIDOCAINE 1% MPF 5 ML VIAL ONE (23:55)
[2019-07-26] MEDS ORDERED: SMZ./TMP. 800/160 MG TABLET ONE (23:55)
--- NOTE | 2019-07-27 00:15 | ER ---
Nurse's Notes [facility] Name: Mya Blanchard Age: 18 yrs Sex: Female : 2000 Arrival Date: 07/26/2019 Time: 22:59 Bed 20 Private MD: Diagnosis: Cutaneous abscess of buttock Presentation: 07/26 23:08 Presenting complaint: Patient states: Abscess to left upper buttock x 3 days; Painful lp1 to sit. Transition of care: patient was not received from another setting of care. Onset of symptoms was July 26, 2019. Risk Assessment: Do you want to hurt yourself or someone else? Patient reports no desire to harm self or others. Initial Sepsis Screen: Does the patient meet any 2 criteria? No. Patient's initial sepsis screen is negative. Does the patient have a suspected source of infection? No. Patient's initial sepsis screen is negative. Care prior to arrival: None. 23:08 Method Of Arrival: Ambulatory lp1 23:08 Acuity: BHASKAR 4 lp1 DIRECTOR OF INTEGRATED MARKETING: 23:09 LMP N/A - Recent lp1 Historical: - Home Meds: 23:09 Iron CR Oral [Active]; Vitamin Oral [Active]; lp1 - PMHx: 23:09 None; lp1 - PSHx: 23:09 ; lp1 - Immunization history:: Adult Immunizations up to date. - Social history:: Smoking status: Patient/guardian denies using tobacco. - Ebola Screening: : No symptoms or risks identified at this time. Screenin:10 Abuse screen: Denies threats or abuse. Denies injuries from another. Nutritional lp1 screening: No deficits noted. Tuberculosis screening: No symptoms or risk factors identified. Fall Risk None identified. Assessment: 23:20 General: Appears in no apparent distress. comfortable, Behavior is calm, cooperative, aa1 appropriate for age. Pain: Complains of pain in left gluteus cesar. Neuro: Level of Consciousness is awake, alert, obeys commands, Oriented to person, place, time, situation, Gait is steady. Respiratory: Airway is patent Respiratory effort is even, unlabored, Respiratory pattern is regular, symmetrical. GI: No signs and/or symptoms were reported involving the gastrointestinal system. : No signs and/or symptoms were reported regarding the genitourinary system. EENT: No signs and/or symptoms were reported regarding the EENT system. Derm: Skin is intact, is healthy with good turgor, Skin is pink, warm \T\ dry. Abscess located on left gluteus cesar is quarter sized, is red, is raised. Musculoskeletal: Circulation, motion, and sensation intact. Capillary refill < 3 seconds. 07/27 00:29 Reassessment: Patient appears in no apparent distress at this time. Patient is alert, aa1 oriented x 3, equal unlabored respirations, skin warm/dry/pink. Discussed d/c \T\ f/u instructions with pt; denies questions or concerns at this time. Ambulates to lobby with steady gait. Vital Signs: 07/26 23:09 BP 128 / 85; Pulse 88; Resp 16; Temp 99.4(O); Pulse Ox 99% on R/A; Weight 78.93 kg; lp1 Height 5 ft. 6 in. (167.64 cm); Pain 9/10; 07/27 00:29 BP 121 / 79; Pulse 81; Resp 16; Temp 99.0; Pulse Ox 98% on R/A; Pain 4/10; aa1 07/26 23:09 Body Mass Index 28.08 (78.93 kg, 167.64 cm) lp1 ED Course: 07/26 22:59 Patient arrived in ED. ag3 23:04 Micaela Delcid FNP-C is [facility]. kb 23:04 Balwinder Castro MD is Attending Physician. kb 23:09 Triage completed. lp1 23:10 Arm band placed on. lp1 23:10 Patient has correct armband on for positive identification. Placed in gown. lp1 23:50 Zandra Almazan RN is Primary Nurse. aa1 07/27 00:09 Assist provider with I \T\ D: of an abscess on left buttock Set up I\T\D tray. Performed by aa 1 Micaela DUMONT Culture sent to lab. Wound packed. iodoform gauze, Dressing with 4X4s, tape Patient tolerated well. 00:16 Patient did not have IV access during this emergency room visit. aa1 Administered Medications: 07/26 00:00 Drug: Lidocaine (1 %) 1 vials Volume: 5 ml; Route: Infiltration; aa1 23:58 Drug: Bactrim (160 mg-800 mg (DS) 1 tablet Route: PO; aa1 07/27 00:35 Follow up: Response: No adverse reaction; Medication administered at discharge. aa1 00:20 Drug: [place]branch (7.5 mg-325 mg) 1 tabs {Note: RASS 0.} Route: PO; aa 00:35 Follow up: Response: No adverse reaction; Medication administered at discharge.; RASS: aa1 Alert and Calm (0) Outcome: 00:13 Discharge ordered by . dorian 00:29 Discharged to home ambulatory, with family. aa1 00:29 Condition: good 00:29 Discharge instructions given to patient, family, Instructed on discharge instructions, follow up and referral plans. medication usage, wound care, Demonstrated understanding of instructions, follow-up care, medications, wound care, Prescriptions given X 1. 00:36 Patient left the ED. aa1 Signatures: Micaela Delcid, ERNIE-C HRIS SPECIALIST-CkZandra Lamar RN RN aa1 Shilpi March RN RN lp1 Fely Stout ag3 Corrections: (The following items were deleted from the chart) :07/26 20:20 General: Appears in no apparent distress. comfortable, Behavior is calm, aa1 cooperative, appropriate for age, 07/27:07/26 20:20 Pain: Complains of pain in left gluteus cesar aa 07/27:07/26 20:20 Neuro: Level of Consciousness is awake, alert, obeys commands, Oriented to aa1 person, place, time, situation, Gait is steady, 07/27:07/26 20:20 Respiratory: Airway is patent Respiratory effort is even, unlabored, aa1 Respiratory pattern is regular, symmetrical, 07/27:07/26 20:20 GI: No signs and/or symptoms were reported involving the gastrointestinal aa1 system. 07/27:07/26 20:20 : No signs and/or symptoms were reported regarding the genitourinary aa1 system. 07/27:07/26 20:20 EENT: No signs and/or symptoms were reported regarding the EENT system. aa1 aa1 07/27 20:20 Derm: Skin is intact, is healthy with good turgor, Skin is pink, warm \T\ aa1 dry. Abscess located on left gluteus cesar is quarter sized, is red, is raised, aa1 07/27 00:07/26 20:20 Musculoskeletal: Circulation, motion, and sensation intact. Capillary aa1 refill < 3 seconds, aa1
--- NOTE | 2019-07-27 00:16 | EDPHYS ---
Physician Documentation [facility] Name: Mya Balnchard Age: 18 yrs Sex: Female : 2000 Arrival Date: 07/26/2019 Time: 22:59 Bed 20 Private MD: ED Physician Balwinder Castro HPI: 07/26 23:54 This 18 yrs old Female presents to ER via Ambulatory with complaints of BUMP ON LOWER kb BACK. 23:54 The patient presents with an abscess of the left lower back. Description: erythematous, kb swollen. Onset: The symptoms/episode began/occurred 3 day(s) ago. Possible cause(s): unknown. Associated signs and symptoms: Pertinent positives: erythema, swelling. Modifying factors: the symptoms are alleviated by nothing, the symptoms are aggravated by pressure, sitting, squeezing the lesion and expressing the contents, touching. Severity of symptoms: At their worst the symptoms were moderate, in the emergency department the symptoms are unchanged. The patient has not experienced similar symptoms in the past. The patient has not recently seen a physician. 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 - Social history:: Smoking status: Patient/guardian denies using tobacco. - Ebola Screening: : No symptoms or risks identified at this time. ROS: 23:53 Constitutional: Negative for fever, chills, and weight loss, ENT: Negative for injury, kb pain, and discharge, Neck: Negative for injury, pain, and swelling, Cardiovascular: Negative for chest pain, palpitations, and edema, Respiratory: Negative for shortness of breath, cough, wheezing, and pleuritic chest pain, Abdomen/GI: Negative for abdominal pain, nausea, vomiting, diarrhea, and constipation, Back: Negative for injury and pain, MS/Extremity: Negative for injury and deformity, Neuro: Negative for headache, weakness, numbness, tingling, and seizure. 23:53 Skin: Positive for abscess, of the left lower back. Exam: 23:53 Constitutional: This is a well developed, well nourished patient who is awake, alert, kb and in no acute distress. Head/Face: Normocephalic, atraumatic. Chest/axilla: Normal chest wall appearance and motion. Nontender with no deformity. No lesions are appreciated. Cardiovascular: Regular rate and rhythm with a normal S1 and S2. No gallops, murmurs, or rubs. Normal PMI, no JVD. No pulse deficits. Respiratory: Lungs have equal breath sounds bilaterally, clear to auscultation and percussion. No rales, rhonchi or wheezes noted. No increased work of breathing, no retractions or nasal flaring. Abdomen/GI: Soft, non-tender, with normal bowel sounds. No distension or tympany. No guarding or rebound. No evidence of tenderness throughout. MS/ Extremity: Pulses equal, no cyanosis. Neurovascular intact. Full, normal range of motion. Neuro: Awake and alert, GCS 15, oriented to person, place, time, and situation. Cranial nerves II-XII grossly intact. Motor strength 5/5 in all extremities. Sensory grossly intact. Cerebellar exam normal. Normal gait. 23:53 Skin: abscess, that is moderate sized, of the left lower back, with fluctuance, that is moderate. Vital Signs: 23:09 BP 128 / 85; Pulse 88; Resp 16; Temp 99.4(O); Pulse Ox 99% on R/A; Weight 78.93 kg; lp1 Height 5 ft. 6 in. (167.64 cm); Pain 9/10; 07/27 00:29 BP 121 / 79; Pulse 81; Resp 16; Temp 99.0; Pulse Ox 98% on R/A; Pain 4/10; aa1 07/26 23:09 Body Mass Index 28.08 (78.93 kg, 167.64 cm) lp1 Procedures: 00:11 I \T\ D: Incision and drainage was performed for an abscess of the left left lower back kb Prepped with Betadine, Anesthetized with 1 ml's 1% Lidocaine. Incised with #11 blade. Drained moderate amount purulent fluid. Packed with iodoform gauze, Dressing: sterile 4x4 gauze, the patient tolerated the procedure well. MDM: 07/26 23:04 Patient medically screened. kb 23:53 Data reviewed: vital signs, nurses notes. Data interpreted: Pulse oximetry: on room air kb is 99 %. Interpretation: normal. Counseling: I had a detailed discussion with the patient and/or guardian regarding: the historical points, exam findings, and any diagnostic results supporting the discharge/admit diagnosis, the need for outpatient follow up, a family practitioner, a general surgeon, to return to the emergency department if symptoms worsen or persist or if there are any questions or concerns that arise at home. 07/26 23:55 Order name: Wound Culture kb 07/26 23:31 Order name: I\T\D Setup kb Administered Medications: 00:00 Drug: Lidocaine (1 %) 1 vials Volume: 5 ml; Route: Infiltration; aa1 23:58 Drug: Bactrim (160 mg-800 mg (DS) 1 tablet Route: PO; aa1 07/27 00:35 Follow up: Response: No adverse reaction; Medication administered at discharge. aa1 00:20 Drug: [place] (7.5 mg-325 mg) 1 tabs {Note: RASS 0.} Route: PO; aa1 00:35 Follow up: Response: No adverse reaction; Medication administered at discharge.; RASS: aa1 Alert and Calm (0) Disposition: 00:38 Co-signature as Attending Physician, Balwinder Castro MD. amanda Disposition: 07/27/19 00:13 Discharged to Home. Impression: Cutaneous abscess of buttock. - Condition is Stable. - Discharge Instructions: Skin Abscess, [id number], Incision and Drainage, Care After. - Prescriptions for Bactrim DS 800- 160 mg Oral Tablet - take 1 tablet by ORAL route every 12 hours for 10 days; 20 tablet. - Medication Reconciliation Form, Thank You Letter, Antibiotic Education, Prescription Opioid Use form. - Follow up: Emergency Department; When: As needed; Reason: Worsening of condition. Follow up: Private Physician; When: 2 - 3 days; Reason: Recheck today's complaints, Continuance of care, Re-evaluation by your physician. Signatures: Dispatcher [employer] Micaela Vazquez FNP-C FNP-Ckb Autenrieth, Alissa RN RN aa1 Balwinder Castro MD MD pkl Shilpi March RN RN lp1 Corrections: (The following items were deleted from the chart) 00:36 00:13 07/27/2019 00:13 Discharged to Home. Impression: Cutaneous abscess of buttock. aa1 Condition is Stable. Forms are Medication Reconciliation Form, Thank You Letter, Antibiotic Education, Prescription Opioid Use. Follow up: Emergency Department; When: As needed; Reason: Worsening of condition. Follow up: Private Physician; When: 2 - 3 days; Reason: Recheck today's complaints, Continuance of care, Re-evaluation by your physician. kb
[2019-07-27] MEDS ORDERED: HYDROCODONE/APAP 7.5/325 MG TAB ONE (00:18)
== END 2019-07-27 00:36 | disposition home or self-care (01) ==
LOC: ER 22:53
PROC: 0J990ZZ Drainage of Buttock Subcutaneous Tissue and Fascia, Open Approach (ICD-10-PCS; principal; 2019-07-27)
DX: L02.31 Cutaneous abscess of buttock (principal)
CPT/HCPCS: 87070; 87205; 99284